=== PATIENT | female | born 1955 | race Caucasian/White ===

== ENCOUNTER 2023-01-02 07:49 | Outpatient (OUT) | payer MEDICARE, SELFPAY ==
--- NOTE | 2023-01-02 07:05 | NM_ITS ---
[address] [address] Patient Name: DREAD PATEL MRN: [id number] date: 1955 Sex: F Assigned Patient Location: [place] Current Patient Location: Accession/Order Number: [id number] Exam Date: 01/02/2023 07:05 Report Date: 01/03/2023 09:16 At the request of: NATHANIEL MADERA Procedure: NM thyroid w uptake EXAMINATION: NM thyroid w uptake HISTORY: ABNORMAL RESULTS OF THYROID FUNCTION STUDIES R94.6 COMPARISON: No relevant comparison available. TECHNIQUE: After obtaining patient consent, 199.1 uCi I-123 was administered orally. Uptake was evaluated between 4 and 6 hours and at 24 hours. Images were acquired at 4 - 6 hours. FINDINGS: THYROID SCAN: Normal-appearing thyroid gland without enlargement or filling defect. Uptake at 7 hours: 7.9% (normal range 6-14%) Uptake at 24 hours: Patient did not return for evaluation. Patient was contacted but declined to return for evaluation. NM/NM thyroid w uptake IMPRESSION: 1. Limited evaluation since patient did not return for 24-hour evaluation. 2. Low normal uptake at 7 hours. 3. Normal appearance of thyroid gland. Electronically authenticated by: STACIE KWON Date: 01/03/2023 09:16
== END 2023-01-02 07:50 | disposition home or self-care (01) ==
LOC: NM 07:49
PROVIDERS: PCP Family Medicine; Visit Provider Family Medicine
DX: R94.6 Abnormal results of thyroid function studies (principal)
CPT/HCPCS: 78014; A9516

== ENCOUNTER 2023-07-03 15:30 | Outpatient (OUT) | payer MEDICARE, SELFPAY ==
--- NOTE | 2023-07-03 15:36 | XR_ITS ---
The [address] [address] Patient Name: DREAD PATEL MRN: [id number] date: 1955 Sex: F Assigned Patient Location: [facility] Current Patient Location: Accession/Order Number: [id number] Exam Date: 07/03/2023 15:43 Report Date: 07/04/2023 08:02 At the request of: NATHANIEL MADERA Procedure: XR sacrum coccyx min 2V EXAMINATION: XR sacrum coccyx min 2V HISTORY: sacral contusion S30.0XXA ; sacrum and coccyx pain since falling 2 weeks ago COMPARISON: No relevant comparison available. FINDINGS: BONES: 6 mm anterolisthesis of L3 on 4. 10 mm anterolisthesis of L4 on 5. Moderate degenerative facet arthropathy L3-4 through L5-S1. Questionable cortical step-off involving right lateral margin of the sacrum at level of mid sacroiliac joint. DISC SPACES: Marked narrowing L5-S1. Moderate narrowing L3-4 and L4-5. PARASPINOUS: Negative. No paraspinous abnormality is seen. OTHER: Negative. XR/XR sacrum coccyx min 2V IMPRESSION: 1. Question of fracture involving the right side of sacrum S2-3 level. While this may represent summation artifact CT imaging of the pelvis should be considered for further evaluation. 2. Multilevel marked degenerative changes of lumbar spine which could contribute to patient's symptoms. Electronically authenticated by: STACIE KWON Date: 07/04/2023 08:02
== END 2023-07-03 15:31 | disposition home or self-care (01) ==
LOC: RAD 15:32
PROVIDERS: PCP Family Medicine; Visit Provider Family Medicine
DX: S30.0XXA Contusion of lower back and pelvis, initial encounter (principal); M51.36 Other intervertebral disc degeneration, lumbar region
CPT/HCPCS: 72220

== ENCOUNTER 2024-11-25 12:16 | Outpatient (OUT) | payer MEDICARE, SELFPAY | END 2024-11-25 12:17 | disposition home or self-care (01) | LOC: WC 12:17 | PROVIDERS: PCP Family Medicine; Visit Provider Physician Assistant | DX: I87.312 Chronic venous hypertension (idiopathic) with ulcer of left lower extremity (principal); L97.822 Non-pressure chronic ulcer of other part of left lower leg with fat layer exposed | CPT/HCPCS: G0463 ==

== ENCOUNTER 2024-12-16 15:00 | Outpatient (OUT) | payer MEDICARE, SELFPAY | END 2024-12-16 15:01 | disposition home or self-care (01) | LOC: WC 12-17 08:23 | PROVIDERS: PCP Family Medicine; Visit Provider Physician Assistant | DX: I87.312 Chronic venous hypertension (idiopathic) with ulcer of left lower extremity (principal); L97.822 Non-pressure chronic ulcer of other part of left lower leg with fat layer exposed | CPT/HCPCS: G0463 ==

== ENCOUNTER 2025-01-06 13:39 | Outpatient (OUT) | payer MEDICARE, SELFPAY ==
--- OUTSIDE RECORDS SUMMARY | 2012-01-16 19:30 | XMS_ITS | Encounter Summary ---
Author Organization [facility] Address [address], [address] [place] [address] Care Team Providers Care Scraper Burrer Name Role Phone Kamaljit Lopez MD Primary Care Provider [phone] Encounter Details Date Type Department Care Team ([facility] st Contact Info) Description 01/16/2012 7:30 PM EDT Hospital Encounter MTH PET [address] [place], [place] [id number] Kamaljit Lopez MD [address] [place] [address] Social History Tobacco Use Types Packs/Day Years Used Date Smoking Tobacco: Never Smokeless Tobacco: Never Alcohol Use Standard Drinks/Week Comments Not Currently 0 (1 standard drink = 0.6 oz pur e alcohol) Interpersonal Safety Domain Source: IP Abuse Scr eening Answer Date Recorded Physical abuse Denies 11/02/2024 Verbal abuse Denies 11/02/2024 Emotional abuse Denies 11/02/2024 Financial abuse Denies 11/02/2024 Sexual abuse Denies 11/02/2024 Comments No Sex and Gender Information Value Date Recorded Sex Assigned at Not on file Legal Sex Female 8:45 PM EST Gender Identity Not on file Sexual Orientation Not on file COVID-19 Exposure Response Date Recorded In the last 10 days, have yo u been in contact with someone who was confirmed or suspected to have Coronavirus/COVID-19? Yes 09/08/2021 9:12 AM EDT documented as of this encounter Plan of Treatment Not on file documented as of this encounter Visit Diagnoses Not on filedocumented in this encounter Additional Health Concerns Infection Onset Date Last Indicated Resolved Time ESBL (Extended Spectrum Beta Lactamase) 12/28/2018 01/29/2019 COVID-19 (Rule Out) 09/06/2019 09/06/2019 09/07/19 20 12:02 PM EDT COVID-19 (Rule Out) 11/05/2019 11/05/2019 11/08/19 20 6:07 PM EDT COVID-19 (Rule Out) 09/08/2021 09/08/2021 09/09/19 22 10:07 AM EDT COVID-19 09/08/2021 09/08/2021 09/22/2021 9:27 PM EDT COVID-19 (Rule Out) 04/04/2022 04/04/2022 04/05/20 22 10:34 AM EST Influenza 04/04/2022 04/04/2022 04/14/2022 9:26 PM EST documented as of this encounter Care Teams Scraper Burrer Relationship Specialty Start Date End Date Kamaljit Lopez MD [address] [place] [address] PCP - General 01/15/12 documented as of this encounter
--- OUTSIDE RECORDS SUMMARY | 2016-03-26 14:00 | XMS_ITS | Encounter Summary ---
Author Organization [facility] Address [facility] [facility], [address] [place] [address] Care Team Providers Care Kindergartners Helper Name Role Phone Kamaljit Lopez MD Primary Care Provider [phone] Encounter Details Date Type Department Care Team ([facility] st Contact Info) Description 03/26/2016 1:00 PM EST Hospital Encounter MTH PRE ADMIT [address] [place] [address] Bertin Gomez MD [address] [place] [address] Social History Tobacco Use Types Packs/Day Years [...] documented as of this encounter Care Teams Kindergartners Helper Relationship Specialty Start Date End Date Kamaljit Lopez MD [address] [place] [address] PCP - General 01/15/12 documented as of this encounter
--- OUTSIDE RECORDS SUMMARY | 2024-10-20 10:30 | XMS_ITS ---
Author Organization The [facility] in [place] Address [address] [place] [address] Care Team Providers Care Dough Mixer Helper Name Role Phone Dereje Lopez Primary Care Provider REASON FOR VISIT not walking straight since knee surgery Encounters Encounter Location Date Provider Diagnosis [facility] [address] [place] [address] 10/20/2024 Dereje Lopez Plan Of Treatment No Information Progress Notes * Michelle ROSEN LDOB: 6 (69 yo F)Acc No.[id number]:10/20/2024 UNLOCKED PROGRESS NOTE Progress Note Patient: Jama DENSON Michelle Natanael Provider: Poornima Lopez MD (TTC) :1955 A ge:69 Y S ex:Female Date:10/20/2024 Address:[address], [address], [place], [place] Subjective: * Chief Complaints: * 1 . Not walking straight since knee surgery. * Medical History: Objective: * Vitals: Assessment: Plan: * Treatment: * * Electronic signature of Dereje Lopez MD, [id number] on 01/06/2025 at 01:42 PM EDT Sign off status: Pending Visit Status: C ANCPHONE (Cancelled Phone) * Provider: Poornima Lopez MD (TTC) Date: 0 10/20/2024 Generated for Thao ochoa/Sheng/Deborah on: 1 01:42 PM EDT
--- OUTSIDE RECORDS SUMMARY | 2024-11-30 07:30 | XMS_ITS ---
Author Organization The [facility] in [place] Address [address] [place] [address] Care Team Providers Care Apparel Rental Clerk Name Role Phone Dereje Lopez Primary Care Provider [phone] REASON FOR VISIT possible neuropathy Encounters Encounter Location Date Provider Diagnosis [facility] [address] [place] [address] 11/30/2024 Dereje Lopez Plan Of Treatment No Information Progress Notes * Michelle ROSEN LDOB: 6 (69 yo F)Acc No.[id number]:11/30/2024 UNLOCKED PROGRESS NOTE Progress Note Patient: Michelle VALENZUELA Provider: Poornima Lopez MD (TTC) :1955 A ge:69 Y S ex:Female Date:11/30/2024 Address:[address] [place] [address], [address], [place], [place] Subjective: * Chief Complaints: * 1 . Possible neuropathy. * Medical History: Objective: * Vitals: Assessment: Plan: * Treatment: * * Electronic signature of Dereje Lopez MD, [id number] on 01/06/2025 at 01:41 PM EDT Sign off status: Pending Visit Status: C ANCPHONE (Cancelled Phone) * Provider: Poornima Lopez MD (TTC) Date: 0 11/30/2024 Generated for Printi ng/Faxing/eTransmitting on: 1 01:41 PM EDT
--- OUTSIDE RECORDS SUMMARY | 2025-01-06 13:41 | XMS_ITS | Clinical Summary ---
Author Organization The [facility] Address [address] [place] [address] Care Team Providers Care Football Pad Repairer Name Role Phone Unavailable Primary Care Provider Unavailabl e Social History Tobacco Use Types Packs/Day Years Used Date Smoking Tobacco: Never Assessed [place] Safety & Environment Answer Date Rec orded Fear of Current or Ex-Partner Not on file Emotionally Abused Not on file 05/29/2023 Physically Abused Not on file 05/29/2023 Sexually Abused Not on file 05/29/2023 Physically or Sexually Abused Not on file Comments Unknown Sex and Gender Information Value Date Recorded Sex Assigned at Not on file Legal Sex Female 10:12 PM EDT Gender Identity Not on file Sexual Orientation Not on file Plan of Treatment Health Maintenance Due Date Last Done Comments CT Colonography 1955 Colonoscopy 1955 Colorectal Cancer Screening 1955 FIT-DNA 1955 FIT 1955 FOBT 1955 Sigmoidoscopy 1955 Depression Screening 1968 Adult Tetanus 02/23/1978 Mammogram 1996 Pneumococcal Vaccine: 50+ Ye ars (1 of 1 - PCV) 02/23/2006 Zoster Vaccines (1 of 2) 02/23/2006 Fall Risk Screening 02/23/2021 COVID-19 Vaccine ( - 2023-2 5 season) 2024 Influenza Vaccine (#1) 2024 01/05/2019 HIB Vaccines Aged Out No longer eligi ble based on patient's age to complete this topic HPV Vaccines Aged Out No longer eligi ble based on patient's age to complete this topic IPV Vaccines Aged Out No longer eligi ble based on patient's age to complete this topic Meningococcal B Vaccine Aged Out No l onger eligible based on patient's age to complete this topic Meningococcal Vaccine Aged Out No jonathon claudio eligible based on patient's age to complete this topic Rotavirus Vaccines Aged Out No longer eligible based on patient's age to complete this topic
--- OUTSIDE RECORDS SUMMARY | 2025-01-06 13:41 | XMS_ITS | Clinical Summary ---
Author Organization [employer] Address [id number] [address] [place] [address] Care Team Providers Care E Business Consultant Name Role Phone Kamaljit Lopez MD Primary Care Provider [phone] Allergies Active Allergy Reactions Criticality Noted Date Comments Penicillins 11/20/2017 Full body rash Medications ALPRAZolam (XANAX) 0.25 mg tablet Take 0.25 mg by mouth 3 (three) times a day as needed for anxiety or sleep. Active atorvastatin (LIPITOR) 10 mg tablet Take 10 mg by mouth daily. Active carvedilol (COREG) 25 mg tablet Take 25 mg by mouth 2 (two) times a day with meals. Active cloNIDine (CATAPRES) 0.1 mg tablet Take 0.1 mg by mouth 3 (three) times a day. Active losartan (COZAAR) 25 mg tablet Take 100 mg by mouth daily. Active sulindac (CLINORIL) 150 mg tablet Take 150 mg by mouth 2 (two) times a day. Active tiZANidine (ZANAFLEX) 4 mg tablet Take 8 mg by mouth once daily at bedtime. Active traMADol (ULTRAM) 50 mg tablet Take 50 mg by mouth every 6 (six) hours as needed for pain. Active Active Problems Problem Noted Date Diagnosed Date Chronic bilateral low back pain without sciatica 11/25/2017 Pancreatitis 11/20/2017 Essential hypertension 11/20/2017 Anxiety 11/20/2017 Hypercholesterolemia 11/20/2017 Acute pancreatitis 11/20/2017 Acute calculous cholecystitis 11/20/2017 Immunizations No known immunizations Social History Tobacco Use Types Packs/Day Years Used Date Smoking Tobacco: Never Smokeless Tobacco: Never Alcohol Use Standard Drinks/Week Comments No 0 (1 standard drink = 0.6 oz pur e alcohol) Childcare Answer Date Recorded Childcare Unknown 09/17/2018 Employment Answer Date Recorded Employment Unknown 09/17/2018 Purpose - Life Answer Date Recorded Purpose and direction in life Unknown Comments Unknown Sex and Gender Information Value Date Recorded Sex Assigned at Not on file Legal Sex Female 1:40 PM EDT Gender Identity Not on file Sexual Orientation Not on file Last Filed Vital Signs Vital Sign Reading Time Taken Comments Blood Pressure 110/74 12/04/2017 10:37 AM EDT Pulse 75 11/25/2017 11:55 AM EDT Temperature 36.9 C (98.4 F) 11/25/2017 11:55 AM EDT Respiratory Rate 16 11/25/2017 11:55 AM EDT Oxygen Saturation 98% 11/25/2017 11:55 AM EDT Inhaled Oxygen Concentration - - Weight 84.8 kg (187 lb) 12/04/2017 10:37 AM EDT Height 165.1 cm (5' 5 ) 11/20/2017 1:26 PM EDT Body Mass Index 31.12 11/20/2017 1:26 PM EDT Plan of Treatment Health Maintenance Due Date Last Done Comments Depression Screening 1968 Tobacco Screening 1968 Adult BMI Screening 02/23/1974 DTaP,Tdap and Td Vaccines (1 - Tdap) 02/23/1975 Zoster (Shingles) Vaccine (1 of 2) 02/23/2006 Fall Risk Screening 02/23/2021 Influenza Vaccine 12/06/2024 Goals Goal Patient Goal Type Associated Problems Recent Progress Patient-Stated? Author <enter goal here> General Yes Mary Ann Wilde, RN Note: Evaluation of progress towards goal: Home self care with her sisters support Medical Devices Not on file Insurance MEDICARE Advance Directives * Full Code (Latest Code Status on File) Date Activated Date Inactivated Comments 11/20/2017 12:43 AM 11/25/2017 4:23 PM Care Teams E Business Consultant Relationship Specialty Start Date End Date Kamaljit Lopez MD PCP - General 08/25/17
--- OUTSIDE RECORDS SUMMARY | 2025-01-06 13:42 | XMS_ITS | Patient Health Record ---
Author Organization [facility] Address [address] [place] [address] Care Team Providers Care Room Maid Name Role Phone Kamaljit Lopez Primary Care Provider Bertin Cheek Unavailable [phone] Allergies Allergen (clinical drug ingredient) Drug/Non Drug Allergy documented on EMR Reaction Allergy Type Onset Date Status sulfamethoxazole / trimethoprim Bactrim Unknown Drug Allergy Active Reason For Referral No Information Medications Medication SIG (Take, Route, Frequency, Duration) Notes Start Date End Date Status TraMADol Hydrochloride 50 mg take 1 tablet by oral route every 12 hours as needed ORAL TRAMADOL HCL Active Atorvastatin Calcium 10 mg take 1 tablet by oral route every day ORAL ATORVASTATIN CALCIUM Active Losartan Potassium 100 mg take 1 tablet by oral route every day ORAL LOSARTAN POTASSIUM Not-Taking ZyrTEC ORAL ZYRTEC Not-Taking Diclofenac Sodium sodium 75 mg take 1 tablet by oral route 2 times every day ORAL DICLOFENAC SODIUM Active carvedilol 25 mg take 1 tablet by oral route 2 times every day with food ORAL CARVEDILOL Active CloNIDine Hydrochloride 0.1 mg take 1 tablet by oral route 2 times every day ORAL CLONIDINE HCL Not-Taking Acetaminophen-Hydroc odone Bitartrate 325 mg-5 mg 1-2 tab(s) PRN PAIN ORAL every 6 hours for 7 days HYDROCODONE-ACETAM INOPHEN 02/12/2023 Active Linzess 145 mcg take 1 capsule by oral route every day on an empty stomach at least 30 minutes before 1st meal of the day ORAL LINZESS Not-Taking Social History Tobacco Use: Social History Observation Description Date Details (start date - stop date) Never Smoker NA - NA Smoking History Question Answer Notes Smoking Status NonSmoker Problems Problem Type SNOMED Code ICD Code Onset Dates Problem Status W/U Status Risk Notes Problem [id number] Aftercare following joint replacement surgery (Z47.1) Active confirmed Problem 377402855500122 Primary osteoarthritis of left knee (M17.12) Active confirmed Problem [id number] Presence of left artificial knee joint (Z96.652) Active confirmed Plan Of Treatment Pending Test Test Name Order Date [facility] PREOP- CBC WITH DIFF, BM P, TYPE AND SCREEN, MRSA BY PCR BILATERAL NARES, [facility]:PT / OT EVALUATION , EKG 11/14/2022 [facility] Knee, Left 4v -[id number] 11/14/2022 Insurance Providers Payer Name Payer Address Payer Phone Subscriber Number Group Number Insured Name Patient Relationship to Insured Coverage Start Date Coverage End Date Medicare [employer] [address] [place] [phone] [id number] DREAD PATEL Self - patient is the insured Medical (General) History Medical History History ICD Code Respiratory problems: Yes High Blood Pressure: Yes Anxiety: Yes Drug Allergies: Yes Surgical History Surgery Date(Month/Year) Left total knee arthroplasty 01/2023 Cholecystectomy 2018 Rt knee replacement 2007 Lung 2004 Hospitalization History Reason Date(Month/Year) Diverticulosis
--- OUTSIDE RECORDS SUMMARY | 2025-01-06 13:42 | XMS_ITS | Patient Health Record ---
Author Organization [facility] [place] Address [address] [place] [address] Care Team Providers Care Encapsulator Name Role Phone Dereje Lopez Primary Care Provider Allergies Allergen (clinical drug ingredient) Drug/Non Drug Allergy documented on EMR Reaction Allergy Type Onset Date Status sulfamethoxazole / trimethoprim Bactrim rash Drug Allergy Active cephalexin Cephalexin diarrhea Drug Allergy Activ e Results Component Value Reference Range Notes CRISSY LUDY DIGITAL SCREEN SELF REFERRAL W OR WO CAD BILATERAL Reviewed date:01/08/2024 07:03:00 PM Interpretation: Performing Lab: Notes/Report: EXAMINATION: Performed at: [address] [place] [address] Reason For Referral Diagnosis 1 Leg wound, left (S81 .802A) Referral Organization [facility] Referring Provider First Name Dereje Referring Provider Last Name sean Referring Provider [facility] Referred Provider Specialty Wound Care Referral Priority Routine Diagnosis 1 Laceration of leg (S 81.020H) Referral Organization [facility] Referring Provider First Name Dereje Referring Provider Last Name [facility] Referring Provider [facility] Referred Provider Specialty Wound Care Referral Priority Routine Medications Medication SIG (Take, Route, Frequency, Duration) Notes Start Date End Date Status Doxycycline Monohydrate 100 MG 1 tablet Orally bid; Duration: 10 days 11/11/2024 Active Irbesartan 300 MG Take 1 tablet by ivone th once daily; Duration: 90 Active tiZANidine HCl 4 MG TAKE 2 TABLETS BY MO UTH EVERY DAY AT BEDTIME; Duration: 30 Active Rollator - Use rollator to safe ly ambulate daily; Duration: 365 days 01/23/2023 Active Atorvastatin Calcium 10 MG Take 1 tablet by mouth once daily; Duration: 90 Active Mupirocin 2 % 1 application Can Filler ally Twice a day; Duration: 5 07/03/2023 Active HYDROcodone-Acetaminophen 5-325 MG 1/2 - 1 tablet as needed Orally QHS; Duration: 30 days 12/24/2024 Active amLODIPine Besylate 10 MG TAKE 1 TABLET BY MOUTH EVERY DAY FOR 30 DAYS; Duration: 90 Active Meloxicam 15 MG 1 tablet Orally Once a day; Duration: 30 days 06/22/2024 Active hydrALAZINE HCl 50 MG TAKE 2 TABLETS BY MOUTH 4 TIMES DAILY; Duration: 30 Active traMADol HCl 50 MG TAKE 2 TABLETS BY MO [facility] 3 TIMES A DAY NEEDED; Duration: 30 12/16/2024 Active Cymbalta 30 MG 1 capsule Orally Onc e a day; Duration: 30 day(s) 01/02/2024 Active Clindamycin Phosphate 1 % 1 application Externally Once a day 09/01/2024 Active Claritin 10 MG 1 tablet Orally Once a day Active Carvedilol 25 MG TAKE 1 TABLET BY IVONE THREE TIMES DAILY; Duration: 90 days Active Buprenorphine 20 MCG/HR APPLY ONE PATCH TO SKIN ONCE A WEEK.; Duration: 28 12/24/2024 Active Ciprofloxacin HCl 500 MG 1 tablet Orally every 12 hrs; Duration: 10 days 11/11/2024 Active Immunizations Vaccine Route Administration Date Status Comme nts Tdap (Adacel) IM Intramuscular 09/01/2024 Administered Social History Tobacco Use: Social History Observation Description Date Details (start date - stop date) Never Smoker NA - NA Tobacco Use/Smoking Question Answer Notes Patient is a nonsmoker Alcohol Screen (Audit-C) Question Answer Notes Did you have a drink containing alcohol in the p ast year? No Points 0 Interpretation Negative AUDIT-C (Standard) Question Answer Notes Did you have a drink containing alcohol in the p ast year? 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) Active confirmed Problem Backache (855842072) Other dorsa lgia (M54.89) Active confirmed Problem Abnormal glucose lev el (596044582) Other abnormal glucose (R73.09) Active confirmed Problem Thyroid function chuck ts abnormal (106184028) Abnormal results of thyroid function studies (R94.6) Active confirmed Problem Strain of muscle of left upper arm (99742196712541346) Strain of other muscles, fascia and tendons at shoulder and upper arm level, left arm, initial encounter (S46.812A) Active confirmed Problem Hypertension (14478162) Hypertension (I10) Active confirmed Problem Osteoarthritis of kn ee (007569421) Knee osteoarthritis (M17.9) Active confirmed Problem Neuropathy (623314179) Neuropathy (G62.9) Active confirmed Problem Cellulitis (493529302) Cellulitis (L03.90) Activ e confirmed Problem Acute sinusitis (25172417) Acute sinus infection (J01.90) Active confirmed Problem Sacral contusion (S30.0XXA) Active confirmed Problem hypercholesterolemia (disorder) (48404681) Hypercholesteremia (E78.00) Active confirmed Problem Low back pain (finding) (896546694) Low back pain at multiple sites (M54.50) Active confirmed Vital Signs Temperature 98.6 degrees Fahrenheit 03/18/2024 Blood pressure diastolic 94 mm Hg 11/11/2024 Height 61.5 in 11/11/2024 Blood pressure systolic 158 mm Hg 11/11/2024 Weight 174.6 lbs 11/11/2024 BMI 32.45 kg/m2 11/11/2024 Procedures Procedure Date Ordered Date Performed Result Body Sit e Dressing Change- performed 03/18/2024 N/A Encounters Encounter Location Date Provider Diagnosis [facility] [address] [place] [address] 06/29/2024 Dereje Hoy Acute non-recurrent sinusitis, unspecified location J01.90 and Nasal congestion R09.81 [facility] [address] [place] [facility] [place] [address] 09/01/2024 Dereje Hoy Cellulitis L03.90 an d Laceration of leg S81.819A [facility] [address] [place] [facility] [address] 11/11/2024 Dereje Hoy Morbid (severe) obes ity due to excess calories E66.01 and Non-pressure chronic ulcer of other part of left lower leg with fat layer exposed L97.822 [facility] [address] [facility] [place] [address] 03/18/2024 Dereje Hoy Cellulitis L03.90 [facility] [address] [place] [facility] [address] 01/08/2024 Dereje y [facility] [address] [place] [facility] [address] 01/14/2024 Dereje Hoy [facility] [address] [facility] [address] 02/06/2024 Dereje Hoy [facility] [address] [place] [address] 02/16/2024 Dereje Hoy [facility] [address] [place] [facility] [address] 03/08/2024 Dereje Hoy Hypertension I10 [facility] [address] [place] [facility] [address] 03/12/2024 Dereje Hoy [facility] [address] [place] [facility] [address] 03/17/2024 Dereje Hoy [facility] [address] [place] [facility] [place] [address] 03/18/2024 Dereje Hoy Leg wound, left S81. 802A [facility] [address] [place] [address] 03/19/2024 Dereje Hoy [facility] [address] [place] [facility] [address] 04/06/2024 Dereje Hoy [facility] [address] [place] [address] 05/10/2024 Dereje Hoy Hypertension I10 [facility] [address] [place] [address] 05/14/2024 Dereje Hoy [facility] [address] [place] [address] 06/08/2024 Dereje Hoy [facility] [address] [place] [address] 06/09/2024 Dereje Hoy Hypertension I10 [facility] [address] [facility] [place] [address] 06/22/2024 Dreeje Hoy [facility] [address] [place] [address] 06/29/2024 Dereje Hoy Acute non-recurrent sinusitis, unspecified location J01.90 [facility] [address] [facility] [place] [address] 07/15/2024 Dereje Hoy Nasal congestion R09 .81 [facility] [address] [facility] [place] [address] 08/03/2024 Dereje Hoy Acute non-recurrent sinusitis, unspecified location J01.90 [facility] [address] [place] [address] 08/05/2024 Dereje Hoy Acute non-recurrent sinusitis, unspecified location J01.90 [facility] [address] [facility] [place] [address] 08/11/2024 Dereje Hoy Hypertension I10 [facility] [address] [facility] [place] [address] 09/03/2024 Dereje Hoy Cellulitis L03.90 [facility] [address] [facility] [place] [address] 09/27/2024 Dereje Hoy Cellulitis L03.90 [facility] [address] [facility] [place] [address] 09/30/2024 Dereje Hoy Cellulitis L03.90 [facility] [address] [place] [facility] [place] [address] 10/04/2024 Dereje Hoy [facility] [address] [place] [facility] [address] 10/14/2024 Dereje Hoy Hypertension I10 [facility] [address] [place] [facility] [place] [address] 10/25/2024 Dereje Hoy Cellulitis L03.90 [facility] [address] [place] [address] 11/11/2024 Dereje Hoy Hypertension I10 [facility] [address] [place] [facility] [place] [address] 11/11/2024 Dereje Hoy Laceration of leg S81.819A [facility] [address] [place] [address] 11/22/2024 Dereje Hoy Cellulitis L03.90 [facility] [address] [place] [address] 11/26/2024 Dereje Hoy Cellulitis L03.90 [facility] [address] [place] [address] 11/29/2024 Dereje Hoy [facility] [address] [place] [address] 12/16/2024 Dereje Hoy Hypertension I10 [facility] [address] [place] [facility] [place] [address] 12/24/2024 Dereje Hoy Cellulitis L03.90 Assessments Encounter Date Diagnosis (ICD Code) Assessment Notes Treatment Notes Treatment Clinical Notes Section Notes 03/08/2024 Hypertension (ICD-10 - I10) 03/18/2024 Leg wound, left (ICD-10 - S81.802A) 05/10/2024 Hypertension (ICD-10 - I10) 06/09/2024 Hypertension (ICD-10 - I10) 06/29/2024 Acute non-recurrent sinusitis, unspecified location (ICD-10 - J01.90) 07/15/2024 Nasal congestion (ICD-10 - R09.81) 08/03/2024 Acute non-recurrent sinusitis, unspecified location (ICD-10 - J01.90) 08/05/2024 Acute non-recurrent sinusitis, unspecified location (ICD-10 - J01.90) 08/11/2024 Hypertension (ICD-10 - I10) 09/03/2024 Cellulitis (ICD-10 - L03.90) 09/27/2024 Cellulitis (ICD-10 - L03.90) 09/30/2024 Cellulitis (ICD-10 - L03.90) 10/14/2024 Hypertension (ICD-10 - I10) 10/25/2024 Cellulitis (ICD-10 - L03.90) 11/11/2024 Hypertension (ICD-10 - I10) 11/11/2024 Laceration of leg (ICD-10 - S81.819A) 11/22/2024 Cellulitis (ICD-10 - L03.90) 11/26/2024 Cellulitis (ICD-10 - L03.90) 12/16/2024 Hypertension (ICD-10 - I10) 12/24/2024 Cellulitis (ICD-10 - L03.90) 09/01/2024 Cellulitis (ICD-10 - L03.90) 09/01/2024 Laceration of leg (ICD-10 - S81.819A) 11/11/2024 Morbid (severe) obesity due to excess calories (ICD-10 - E66.01) disucsse diet and exercis - pt understands plan 11/11/2024 Non-pressure chronic ulcer of other part of left lower leg with fat layer exposed (ICD-10 - L97.822) 03/18/2024 Cellulitis (ICD-10 - L03.90) 06/29/2024 Acute non-recurrent sinusitis, unspecified location (ICD-10 - J01.90) Rest and drink more liquids, especially water. You may use a humidifier or vaporizer to help keep the drainage moist. Tzil-rlk-zuaomyc Nasal Saline may help the stuffy and runny nose. Use Ibuprofen and or Tylenol as needed for fever, chills, body aches or pain. Children 5 years old should not be given mcjo-rjk-umqkwbc cough and cold medications such as guaifenesin and dextromethorphan. If you're over age 5, you may try pboa-ems-zndwdbp cold medications such as guaifenesin and dextromethorphan, or multi-symptom cold reliever such as Dayquil to help reduce the symptoms. Antibiotics have been prescribed. You should take these until completed and follow the directions. Antibiotics can sometimes cause upset stomach, and in rare cases, serious allergic reactions or serious gastrointestinal problems. If you start having severe abdominal pain, severe vomiting, or bloody diarrhea, you should be reevaluated by your physician or urgent care immediately. Follow up with your Primary Care Provider or return to clinic if symptoms do not improve within 3-5 days 06/29/2024 Nasal congestion (ICD-10 - R09.81) Plan Of Treatment Pending Test Test Name Order Date CMP (COMPLETE METABOLIC PANEL) 3 CMP (COMPLETE METABOLIC PANEL) 4 HEMOGLOBIN A1C (GLYCO) 10/23/2022 HEMOGLOBIN A1C (GLYCO) 01/02/2024 IRON, TOTAL 01/02/2024 IRON, TOTAL 10/23/2022 LIPID PANEL (CHOL/TRIG/HDL/LDL) 10/24/19 23 LIPID PANEL (CHOL/TRIG/HDL/LDL) 01/02/20 24 CBC WITH DIFF 01/02/2024 CBC WITH DIFF 10/23/2022 VITAMIN D, 25 LEVEL (TOTAL) 10/23/2022 VITAMIN D, 25 LEVEL (TOTAL) 01/02/2024 MAMM Mammograms CAD 10/23/2022 MRI Shoulder LT w/o contrast 01/20/2023 NUC MED Thyroid Uptake and Scan* 023 T3 FREE, T4 FREE and TSH 11/15/2022 Dressing Change- performed 03/18/2024 Insulin Level 10/23/2022 Insulin Level 01/02/2024 STOOL OCCULT BLOOD 01/02/2024 STOOL OCCULT BLOOD 10/23/2022 CT Pelvis w/o Contrast 07/06/2023 GLYCOHEMOGLOBIN A1C 11/14/2022 GLYCOHEMOGLOBIN A1C 11/14/2022 IRON 11/14/2022 IRON 11/14/2022 THYROID ANTIBODIES 11/15/2022 THYROID PEROXIDASE AB 12/04/2022 THYROID PEROXIDASE AB 12/04/2022 VITAMIN D 25 OH 11/14/2022 VITAMIN D 25 OH 11/14/2022 XR SHOULDER LT 2V or > 01/15/2023 THYROID PANEL (T4/TSH/FREE T3) 3 THYROID PANEL (T4/TSH/FREE T3) 4 Insurance Providers Payer Name Payer Address Payer Phone Subscriber Number Group Number Insured Name Patient Relationship to Insured Coverage Start Date Coverage End Date [employer] MED[employer]ARE [address] ELENI NIX [id number] Michelle Rosen Self - patient is the insured 2 Medications Administered Medication Instructions Date of Administration Dosage Notes Kenalog-40 07/03/2023 80 mg 80 mg Ketorolac Tromethamine 01/10/2023 60 mg 60 Ketorolac Tromethamine 06/29/2024 60 mg Triamcinolone 40 mg/ml 06/29/2024 120 mg Medical (General) History Medical History History ICD Code Low vitamin D level E55.9 COVID U07.1 Arthritis M19.90 Bowel perforation K63.1 Diverticulitis of large intestine with a bscess with bleeding K57.21 Degeneration of cervical intervertebral disc M50.30 Osteoporosis M81.0 HTN (hypertension), malignant I10 Bronchial adenoma D38.1 Surgical History Surgery Date(Month/Year) Left eye lens implant [address] Gomez 023 lung removed gallbladder bowel resection 2018 right knee replacement Hospitalization History Reason Date(Month/Year) diverticulitis 2018
--- OUTSIDE RECORDS SUMMARY | 2025-01-06 13:42 | XMS_ITS | Clinical Summary ---
Author Organization [facility] Healthcare Address [address] [place] [address] Care Team Providers Care Extrusion Press Adjuster Name Role Phone Unavailable Primary Care Provider Unavailabl e Social History Tobacco Use Types Packs/Day Years Used Date Smoking Tobacco: Never Assessed Comments Unknown Sex and Gender Information Value Date Recorded Sex Assigned at Not on file Legal Sex Female 8:21 PM EDT Gender Identity Not on file Sexual Orientation Not on file Last Filed Vital Signs Vital Sign Reading Time Taken Comments Blood Pressure 139/96 03/23/2018 12:00 PM EST Pulse - - Temperature - - Respiratory Rate - - Oxygen Saturation - - Inhaled Oxygen Concentration - - Weight 87.5 kg (193 lb) 04/28/2018 12:00 PM EST Height 157.5 cm (5' 2 ) 04/28/2018 12:00 PM EST Body Mass Index 35.3 04/28/2018 12:00 PM EST Plan of Treatment Not on file
--- OUTSIDE RECORDS SUMMARY | 2025-01-06 13:42 | XMS_ITS | Encounter Summary ---
Author Organization [facility] Address [address], [address] [place] [address] Care Team Providers Care Service Planner Name Role Phone Kamaljit Lopez MD Primary Care Provider [phone] Reason for Referral * Imaging (Routine) - Denied Specialty Diagnoses / Procedures Referred By Contac t Referred To Contact Radiology Diagnoses Left shoulder pain, unspecified chronicity Procedures MRI SHOULDER LEFT WO CONTRAST Kamaljit Lopez MD [address] [place] [address] Phone: tel: fax: Referral ID Status Reason Start Date Expiration Date Visits Re quested Visits Authorized [id number] Denied 01/24/2023 01/24/2024 1 0 Encounter Details Date Type Department Care Team (Latest Contact Info) Description 01/24/2023 Transcribe Orders [facility] [address] [place] [address] Kamaljit Lopez MD [address] [place] [address] Left shoulder pain, unspecified chronicity (Primary Dx) Social History Tobacco Use Types Packs/Day Years Used Date Smoking Tobacco: Never Smokeless Tobacco: Never Alcohol Use Standard Drinks/Week Comments Not Currently 0 (1 standard drink = 0.6 oz pur e alcohol) Comments No Sex and Gender Information Value Date Recorded Sex Assigned at Not on file Legal Sex Female 8:45 PM EST Gender Identity Not on file Sexual Orientation Not on file documented as of this encounter Plan of Treatment Not on file documented as of this encounter Results * MRI SHOULDER LEFT WO CONTRAST (01/30/2023 10:30 AM EDT) Anatomical Region Laterality Modality Shoulder, Chest, Arm Magnetic Re sonance 01/30/2023 10:5 9 AM EDT Impressions 01/30/2023 12:41 PM EDT 1. Multifocal, partial-thickness interstitial and articular-surface tearing of supraspinatus and infraspinatus with greater than 50% partial-thickness articular-surface and interstitial tearing of mid and posterior supraspinatus between musculotendinous junction and critical zone. 2. Mild subscapularis tendinosis. 3. Moderate bicipital groove tenosynovitis. Thinning of the intra-articular long head of biceps tendon. 4. Degeneration and volume loss of the majority of the labrum. 5. Moderate glenohumeral chondromalacia. Small debris containing glenohumeral joint effusion. 6. Mild degenerative change of the left AC joint. 7. Nonspecific marrow edema in the humeral head and proximal humeral diaphysis. Narrative 01/30/2023 12:41 PM EDT EXAMINATION: MRI OF THE LEFT SHOULDER WITHOUT CONTRAST 01/30/2023 10:25 am TECHNIQUE: Multiplanar multisequence MRI of the left shoulder was performed without the administration of intravenous contrast. COMPARISON: Left shoulder plain radiographs from 01/17/2023. HISTORY: ORDERING SYSTEM PROVIDED HISTORY: Left shoulder pain, unspecified chronicity 67-year-old female with left shoulder pain. FINDINGS: ROTATOR CUFF: Trace fluid in the subacromial/subdeltoid bursa. Multifocal partial-thickness interstitial and articular-surface tearing of supraspinatus and infraspinatus with greater than 50% partial-thickness articular-surface and interstitial tearing of mid and posterior supraspinatus between musculotendinous junction and critical zone on images 7-8, series 5. Mild subscapularis tendinosis. Teres minor muscle/tendon appears grossly intact without evidence of tearing. No significant atrophy or fatty degeneration of the visualized rotator cuff musculature. BICEPS TENDON: Moderate fluid in the bicipital groove. Thinning of the intra-articular long head of biceps tendon. LABRUM: Degeneration and volume loss of the majority of the labrum. GLENOHUMERAL JOINT: Moderate glenohumeral chondromalacia. Small debris containing glenohumeral joint effusion. Inferior glenohumeral ligament appears intact. AC JOINT AND ACROMIOCLAVICULAR ARCH: Mild degenerative change of the left AC joint. Type 2 acromion. BONE MARROW: Nonspecific marrow edema in the humeral head and proximal humeral diaphysis. No acute fracture or dislocation. OUTLET SPACES: Suprascapular notch and quadrilateral space grossly unremarkable in appearance. No left axillary lymphadenopathy. Procedure Note Alex Perez MD - 01/30/2023 EXAMINATION: MRI OF THE LEFT SHOULDER WITHOUT CONTRAST 01/30/2023 10:25 am TECHNIQUE: Multiplanar multisequence MRI of the left shoulder was performed withoutthe administration of intravenous contrast. COMPARISON: Left shoulder plain radiographs from 01/17/2023. HISTORY: ORDERING SYSTEM PROVIDED HISTORY: Left shoulder pain, unspecifiedchronicity 67-year-old female with left shoulder pain. FINDINGS: ROTATOR CUFF: Trace fluid in the subacromial/subdeltoid bursa. Multifocal partial-thickness interstitial and articular-surface tearingof supraspinatus and infraspinatus with greater than 50% partial-thickness articular-surface and interstitial tearing of mid and posteriorsupraspinatus between musculotendinous junction and critical zone on images 7-8, series5. Mild subscapularis tendinosis. Teres minor muscle/tendon appears grossly intact without evidence oftearing. No significant atrophy or fatty degeneration of the visualized rotatorcuff musculature. BICEPS TENDON: Moderate fluid in the bicipital groove. Thinning of the intra-articular long head of biceps tendon. LABRUM: Degeneration and volume loss of the majority of the labrum. GLENOHUMERAL JOINT: Moderate glenohumeral chondromalacia. Small debris containing glenohumeral joint effusion. Inferior glenohumeral ligament appears intact. AC JOINT AND ACROMIOCLAVICULAR ARCH: Mild degenerative change of the leftAC joint. Type 2 acromion. BONE MARROW: Nonspecific marrow edema in the humeral head and proximal humeral diaphysis. No acute fracture or dislocation. OUTLET SPACES: Suprascapular notch and quadrilateral space grossly unremarkable in appearance. No left axillary lymphadenopathy. IMPRESSION: 1. Multifocal, partial-thickness interstitial and articular-surfacetearing of supraspinatus and infraspinatus with greater than 50%partial-thickness articular-surface and interstitial tearing of mid and posteriorsupraspinatus between musculotendinous junction and critical zone. 2. Mild subscapularis tendinosis. 3. Moderate bicipital groove tenosynovitis. Thinning of theintra-articular long head of biceps tendon. 4. Degeneration and volume loss of the majority of the labrum. 5. Moderate glenohumeral chondromalacia. Small debris containing glenohumeral joint effusion. 6. Mild degenerative change of the left AC joint. 7. Nonspecific marrow edema in the humeral head and proximal humeral diaphysis. us Kamaljit Lopez MD IMG MRI ORDERABLES Final Result documented in this encounter Visit Diagnoses Diagnosis Left shoulder pain, unspecified chronicity- Primary Left shoulder pain, unspecified chronicity documented in this encounter Additional Health Concerns Infection Onset Date Last Indicated Resolved Time ESBL (Extended Spectrum Beta Lactamase) 12/28/2018 1 documented as of this encounter Care Teams Service Planner Relationship Specialty Start Date End Date Kamaljit Lopez MD [address] [place] [address] PCP - General 01/15/12 documented as of this encounter
--- OUTSIDE RECORDS SUMMARY | 2025-01-06 13:42 | XMS_ITS | Clinical Summary ---
Author Organization [facility] Address [address] [facility], [address] [place] [address] Care Team Providers Care Ingredient Scaler Helper Name Role Phone Kamaljit Lopez MD Primary Care Provider [phone] Allergies Active Allergy Reactions Criticality Noted Date Comments Sulfamethoxazole-Trimethoprim Nausea Only 11/19 Cephalexin Diarrhea 11/02/2024 Clindamycin/Lincomycin Diarrhea 09/09/2024 Codeine 01/08/2019 Lisinopril High 01/08/2019 Penicillins Hives Medium 11/19/2017 Silver Rash Low 09/09/2024 Medications carvedilol (COREG) 25 MG tablet Take 1 tablet by mouth 3 times daily Active atorvastatin (LIPITOR) 10 MG tablet Take 1 tablet by mouth nightly Active loratadine (CLARITIN) 10 MG capsule Take 1 capsule by mouth nightly Active acetaminophen (TYLENOL) 500 MG tablet Take 2 tablets by mouth every 8 hours for 7 days 42 tablet 01/04/2019 Active diclofenac (VOLTAREN) 75 MG EC tablet Take 1 tablet by mouth 2 times daily Active irbesartan (AVAPRO) 300 MG tablet TAKE 1 TABLET BY MOUTH ONCE DAILY 05/07/2021 Active traMADol (ULTRAM) 50 MG tablet Take 2 tablets by mouth 3 times daily. 06/11/2021 Active vitamin D3 (CHOLECALCIFERO L) 10 MCG (400 UNIT) TABS tablet Take 1 tablet by mouth daily Active IRON, FERROUS SULFATE, PO Take 1 tablet by mouth daily Active buprenorphine 20 MCG/HR PTWK Place 1 patch onto the skin once a week. 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 09/23/2024 Open wound of left lower extremity 09/09/2024 Cellulitis of leg without foot, left 04/06/2024 Laceration of left lower extremity 04/06/2024 Ulcer of left pretibial region with fat layer ex posed 04/06/2024 S/P total knee replacement using cement, left Hypertension 02/03/2023 ESBL (extended spectrum beta -lactamase) producing bacteria infection 02/01/2019 Mild malnutrition 01/30/2019 SIRS (systemic inflammatory response syndrome) 1 Feculent Peritonitis 01/02/2019 Sigmoid diverticulitis 01/02/2019 Obesity (BMI 30.0-34.9) 01/02/2019 Bowel perforation 12/28/2018 Resolved Problems Problem Noted Date Diagnosed Date Resolved Date Posterior subcapsular age-re lated cataract of left eye 07/27/2023 07/28/2023 UTI (urinary tract infection) 01/29/2019 02/28/2019 Acute respiratory failure 12/29/2018 Gallstone pancreatitis 11/19/201701/02 Acute cholecystitis 11/19/2017 01/03/20 19 Dilated intrahepatic bile duct 11/19/2017 01/02/2019 Calculus of gallbladder with acute cholecystitis and obstruction 11/19/2017 01/02/2019 Encounters Date Type Department Care Team Description 12/10/2024 12:41 PM EDT - 12/12/2024 11:59 PM EDT Hospital Encounter [facility] [address] [place] [id number] Abnormal chest sounds; Idiopathic chronic venous hypertension of left lower extremity with ulcer (HCC); Skin ulcer of popliteal region, left, with fat layer exposed (HCC); Peripheral vascular disease, unspecified Discharge Disposition: Home or Self Care 11/29/2024 Transcribe Orders HR SCHEDULING/CONCIERG [address] [place] [address] Viola Tripathi PA-Jama Sprain of joints and ligaments of unspecified parts of neck, subsequent encounter (Primary Dx) 11/29/2024 Transcribe Orders Gabriel Pre Access [address] [place] [address] Rhona Farrar PA Abnormal chest sounds (Primary Dx); Idiopathic chronic venous hypertension of left lower extremity with ulcer (HCC); Skin ulcer of popliteal region, left, with fat layer exposed (HCC); Peripheral vascular disease, unspecified 11/29/2024 Telephone [facility] [address] [place] [address] [place] [phone] Cat Russell, RN Other 11/16/2024 Telephone [facility] [address] [place] [phone] Cat Russell, RN Other 11/16/2024 Orders Only [facility] [address] [place] [phone] Cory Ravi DPM Pseudomonas infection (Primary Dx) 11/02/2024 9:51 AM EDT - 11/02/2024 11:59 PM EDT Hospital Encounter [facility] [address] [place] [phone] Cory Ravi DPM Open wound of left lower extremity, subsequent encounter (Primary Dx) Discharge Disposition: Home or Self Care 11/02/2024 Travel from Last 3 Months Immunizations Immunization Administration Dates Next Due Influenza Virus Vaccine 01/05/2019 Family History Medical History Relation Name Comments Breast Cancer Mother Relation Name Status Comments Father Mother Alive Social History Tobacco Use Types Packs/Day Years Used Date Smoking Tobacco: Never Smokeless Tobacco: Never Tobacco Cessation:Counseling Given: Not Answered Alcohol Use Standard Drinks/Week Comments Not Currently [...] Sign Reading Time Taken Comments Blood Pressure 164/69 11/02/2024 9:56 AM EDT Pulse 85 11/02/2024 9:56 AM EDT Temperature 37.1 C (98.7 F) 11/02/2024 9:56 AM EDT Respiratory Rate 20 11/02/2024 9:56 AM EDT Oxygen Saturation 96% 07/28/2023 2:3 0 PM EDT Inhaled Oxygen Concentration - - Weight 85.2 kg (187 lb 12.8 oz) 10/06/2024 5:45 AM EDT as of 04/06/24 Height 154.9 cm (5' 1 ) 10/06/2024 5:45 AM EDT historical value Body Mass Index 35.48 10/06/2024 5:45 AM EDT Plan of Treatment Health Maintenance Due Date Last Done Comments Depression Screen 1968 Hepatitis C screen 02/23/1974 Fecal-DNA (Cologuard): Average risk 02/23/2001 Sigmoidoscopy/CT colonography 02/23/2001 Pneumococcal 50+ years Vaccine (1 of 1 - PCV) 02/23/2006 Shingles vaccine (1 of 2) 02/23/2006 02/23/2006 DEXA (modify frequency per FRAX score) 02/23/2011 Respiratory Syncytial Virus (RSV) or age 60 yrs+ (1 - Risk 60-74 years 1-dose series) 2016 FIT/FOBT: Average risk 05/22/2022 05/22/2021 Lipids 11/15/2023 11/14/2022, 05/08, 10/31/2018 Annual Wellness Visit (Medicare Advantage) 04/07/2024 Flu vaccine (#1) 11/05/2024 01/12/2021, , 01/18/2019, Additional history exists COVID-19 Vaccine ( season) 2024 04/19/2021, 08/12/2020, 07/20/2020 Breast cancer screen 01/05/2025 01/06/2024, 12/26/2022, 06/09/2019 Diabetes screen 11/14/2025 11/14/2022, 05/08, 10/31/2018 Colonoscopy 11/11/2029 11/12/2019, 10/2019, 09/10/2019 Colorectal Cancer Screen 11/11/2029 DTaP/Tdap/Td vaccine (2 - Td or Tdap) 09/01/2034 09/01/2024 A1C test (Diabetic or Prediabetic) Discontinued 11/14/2022, 05/22/2021, 10/31/2018 GFR test (Diabetes, CKD 3-4, OR last GFR 15-59) Discontinued 01/07/2023, 11/14/2022, 05/22/2021, Additional history exists Hepatitis A vaccine Aged Out No longe r eligible based on patient's age to complete this topic Hepatitis B vaccine Aged Out No longe r eligible based on patient's age to complete this topic Hib vaccine Aged Out No longer eligi ble based on patient's age to complete this topic Meningococcal (ACWY) vaccine Aged Out No longer eligible based on patient's age to complete this topic Meningococcal B vaccine Aged Out No l onger eligible based on patient's age to complete this topic Polio vaccine Aged Out No longer elig ible based on patient's age to complete this topic Medical Devices Implanted Type Area Dope Weigh Operator Device Identifier Shelf Expiration Date Model / Serial / Lot Dup Use [id number] Impl Knee Psn All Poly Pat Ply 29mm - [id number] Implanted:Qty: 1 on 02/03/2023 by Bertin Gomez MD at [facility] Knee Left: Knee [employer] 03/11/2027 [id number] / / [id number] Impl Knee Psn Fem Cr Cmt Ccr Std Sz8 L - [id number] Implanted:Qty: 1 on 02/03/2023 by Bertin Gomez MD at [facility] Knee Left: Knee [employer] 04/08/2032 [id number] / / [id number] Cement Bne 40gm Hi Visc Radpq For Rev Surg - [id number] Implanted:Qty: 1 on 02/03/2023 by Bertin Gomez MD at [facility] Left: Knee [employer]- 07/05/2025 [id number] / / [id number] Cement Bne 40gm Hi Visc Radpq For Rev Surg - [id number] Implanted:Qty: 1 on 02/03/2023 by Bertin Gomez MD at [facility] Left: Knee [employer]- 07/05/2025 [id number] / / [id number] Extension Stem L30mm Rpc15sm Knee Tapr Deangelo Persona - [id number] Implanted:Qty: 1 on 02/03/2023 by Bertin Gomez MD at [facility] Left: Knee [employer]- 12/13/2032 [id number] / / [id number] Extension Stem Sz E 5deg L Tibl Knee Deangelo Sylvia Tib Persona - [id number] Implanted:Qty: 1 on 02/03/2023 by Bertin Gomez MD at [facility] Left: Knee [employer]- 12/07/2032 [id number] / / [id number] Psn Mc Ve Asf L 20mm 8-11 Ef - [id number] Implanted:Qty: 1 on 02/03/2023 by Bertin Gomez MD at [facility] Left: Knee [employer]- 07/06/2023 [id number] / / [id number] Lens Intocu L12.5 Mm Od6 Mm +23.0 D Hydrophobic Envista - [id number] Implanted:Qty: 1 on 07/28/2023 by Guido Gerber DO at [facility]- 03/06/2026 [id number] / [id number] / Explanted Type Area Dope Weigh Operator Device Identifier Shelf Expiration Date Model / Serial / Lot Screw Bne L48mm Constrn Cndyl Knee Hex Hd Stem For Leg Nxgn - [id number] Explanted:Qty : 1 on 02/03/2023 by Bertin Gomez MD at [facility] Left: Knee [employer]- 12/02/2032 [id number] / / [id number] Screw Bne L48mm Constrn Cndyl Knee Hex Hd Stem For Leg Nxgn - [id number] Explanted:Qty : 1 on 02/03/2023 by Bertin Gomez MD at [facility] Left: Knee [employer]WD 11/23/2032 [id number] / / [id number] Procedures Procedure Name Priority Date/Time Associated Diagnosis Comments VAS LOWER EXTREMITY ARTERIAL SEGMENTAL PRESSURES W PPG Routine 12/10/2024 1:30 PM EDT Abnormal chest sounds Idiopathic chronic venous hypertension of left lower extremity with ulcer (HCC) Skin ulcer of popliteal region, left, with fat layer exposed (HCC) Peripheral vascular disease, unspecified CULTURE, WOUND (WITH GRAM STAIN) [employer] Label Print 11/02/2024 10:07 AM EDT Open wound of left lower extremity, subsequent encounter CRISSY LUDY DIGITAL SCREEN SELF REFERRAL W OR WO CAD BILATERAL Routine 01/06/2024 3:49 PM EDT Visit for screening mammogram BASIC METABOLIC PANEL Routine 01/07/2023 1:06 PM EDT LIPID PANEL Routine 11/14/2022 11:23 AM EDT HEMOGLOBIN A1C Routine 11/14/2022 11:23 AM EDT OCCULT BLOOD SCREEN Routine 05/22/2021 4:08 PM EST COLONOSCOPY PROCEDURE Routine 11/12/2019 12:53 PM EDT from Last 3 Months or Most Recently Relevant to Health Maintenance Results * Vascular lower extremity arterial segmental pressures w PPG (12/10/2024 1:30 PM EDT) Right arm BP 215 mmHg [facility] Right posterior tibial 243 mmHg [facility] Right dorsalis pedis BP 223 mmHg [facility] Right peroneal BP 168 mmHg [facility] Right TEDDY 1.13 [facility] CPACS Left arm BP 205 mmHg [facility]ACS Left posterior tibial 243 mmHg [facility] CV CPACS Left dorsalis pedis BP 223 mmHg [facility] CV CPACS Left peroneal BP 200 mmHg [facility] CV CPACS Left TEDDY 1.13 [facility] CV CPACS Anatomical Region Laterality Modality Vascular Vascular Ultraso und Narrative 12/10/2024 5:39 PM EDT Right side findings: Resting TEDDY is 1.13. This is within the normal range. Left side findings: Resting TEDDY is 1.13. This is within the normal range. TEDDY Right side findings: Normal resting TEDDY. Right PVR waveforms: Normal - lower thigh, calf and ankle. Calf augmentation is present. The right posterior tibial artery and dorsalis pedis artery has multiphasic (normal) waveforms. Right toe PPG is normal. Left side findings: Normal resting TEDDY. Left PVR waveforms: Calf augmentation is present. Normal - lower thigh, calf and ankle. The left posterior tibial artery and dorsalis pedis artery has multiphasic (normal) waveforms. Left toe PPG is normal. Rhona HILL CV VASCULAR ORDERABLES Final Result * (ABNORMAL) Culture, Wound (with Gram Stain) (11/02/2024 10:07 AM EDT) Specimen Description .LEG 11/02/2024 10:07 AM EDT [facility] Direct Exam NO NEUTROPHILS SEEN 11/02/2024 10:07 AM EDT [facility] Direct Exam RARE GRAM NEGATIVE RODS 11/02/2024 10:07 AM EDT [facility] Culture PSEUDOMONAS AERUGINOSA MODERATE GROWTH Identification by MALDI-TOF(A) 11/02/2024 10:07 AM EDT [facility] SPECIMEN FROM WOUND / Unknown 11/02/2024 10:07 AM EDT 11/02/2024 10:24 AM EDT Narrative Organism Antibiotic Method Susceptibility Pseudomonas aeruginosa cefepime BACTERIAL SUSCEPTIBILITY PANEL DENISE 2: Sensitive Pseudomonas aeruginosa levofloxacin BACTERIAL SUSCEPTIBILITY PANEL DENISE 0.25: Sensitive Pseudomonas aeruginosa meropenem BACTERIAL SUSCEPTIBILITY PANEL DENISE <=0.25: Sensitive Pseudomonas aeruginosa piperacillin-tazobact am BACTERIAL SUSCEPTIBILITY PANEL DENISE <=4: Sensitive Pseudomonas aeruginosa tobramycin BACTERIAL SUSCEPTIBILITY PANEL DENISE <=1: Sensitive us Cory Ravi DPM MICROBIOLOGY - GENERAL ORDERA BLES Final Result [facility] [address] [place] [address] [facility] [address] [place] [address] * CRISSY LUDY DIGITAL SCREEN SELF REFERRAL W OR WO CAD BILATERAL (01/06/2024 3:49 PM EDT) Anatomical Region Laterality Modality Breast Bilateral Mammography 01/08/2024 9:01 AM EDT Impressions 01/08/2024 9:01 AM EDT No mammographic evidence of malignancy BIRADS: BIRADS - CATEGORY 1 Negative. Normal interval follow-up is recommended in 12 months. OVERALL ASSESSMENT - NEGATIVE A letter of notification will be sent to the patient regarding the results. The [employer] recommends annual mammograms for women 40 years and older. Performing Facility: [facility] [address] [place] [address] Narrative 01/08/2024 9:01 AM EDT EXAMINATION: SCREENING DIGITAL BILATERAL MAMMOGRAM WITH TOMOSYNTHESIS, 01/06/2024 TECHNIQUE: Screening mammography of the bilateral breasts was performed with tomosynthesis. 2D standard and 3D tomosynthesis combination imaging performed through both breasts in the MLO and CC projection. Computer aided detection was utilized in the interpretation of this exam. COMPARISON: December 26, 2022 and June 09, 2019 HISTORY: Screening. FINDINGS: There are scattered areas of fibroglandular density. There is no dominant mass, architectural distortion or concerning grouping of microcalcification in either breast. Kamaljit Lopez MD IMG MAMMOGRAPHY ORDERABLES Sho l Result * (ABNORMAL) Basic Metabolic Panel (01/07/2023 1:06 PM EDT) Sodium 141 135 - 144 mmol/L 01/07/2023 1:06 PM EDT [facility] Potassium 3.9 3.7 - 5.3 mmol/L 01/07/2023 1:06 PM EDT [facility] Chloride 103 98 - 107 mmol/L 01/07/2023 1:06 PM EDT [facility] CO2 28 20 - 31 mmol/L 01/07/2023 1:06 PM EDT [facility] Anion Gap 10 9 - 17 mmol/L 01/07/2023 1:06 PM EDT [facility] Glucose 112(H) 70 - 99 mg/dL 01/07/2023 1:06 PM EDT [facility] BUN 22 8 - 23 mg/dL 01/07/2023 1:06 PM EDT [facility] Creatinine 1.0(H) 0.5 - 0.9 mg/dL 01/07/2023 1:06 PM EDT [facility] Est, Glom Filt Rate >60 >60 mL/min/1.7 3m2 01/07/2023 1:06 PM EDT [facility] Comment: These results are not intended for use in patients <18 years of age. eGFR results are calculated without a race factor using the 2020 CKD-EPI equation. Careful clinical correlation is recommended, particularly when comparing to results calculated using previous equations. The CKD-EPI equation is less accurate in patients with extremes of muscle mass, extra-renal metabolism of creatine, excessive creatine ingestion, or following therapy that affects renal tubular secretion. BUN/Creatinine Ratio 22(H) 9 - 20 01/07/2023 1:06 PM EDT [facility] Calcium 9.0 8.6 - 10.4 mg/dL 01/07/2023 1:06 PM EDT [facility] Blood BLOOD SPECIMEN / Unknown 01/07/2023 1:06 PM EDT 01/07/2023 1:07 PM EDT us Bertin Gomez MD CHEMISTRY ORDERABLES Final Re sult [facility] [address] [phone] * Hemoglobin A1C (11/14/2022 11:23 AM EDT) Hemoglobin A1C 5.5 4.0 - 6.0 % 11/14/2022 11:23 AM EDT [facility] Estimated Avg Glucose 111 mg/dL 11/14/2022 11:23 AM EDT [facility] Comment: The ADA and AACC recommend providing the estimated average glucose result to permit better patient understanding of their HBA1c result. 11/14/2022 11:2 3 AM EDT 11/14/2022 11:24 AM EDT us Kamaljit Lopez MD CHEMISTRY ORDERABLES Final Resu lt [facility] [address] [place] [address], [facility] [phone] [facility] [address] [place] [address], [facility] [phone] * (ABNORMAL) Lipid Panel (11/14/2022 11:23 AM EDT) Cholesterol 149 <200 mg/dL 11/14/2022 11:23 AM EDT [facility] Comment: Cholesterol Guidelines: <200 Desirable 200-240 Borderline >240 Undesirable HDL 40(L) >40 mg/dL 11/14/2022 11:23 AM EDT [facility] Comment: HDL Guidelines: <40 Undesirable 40-59 Borderline >59 Desirable LDL Cholesterol 89 0 - 130 mg/dL 11/14/2022 11:23 AM EDT [facility] Comment: LDL Guidelines: <100 Desirable 100-129 Near to/above Desirable 130-159 Borderline >159 Undesirable Direct (measured) LDL and calculated LDL are not interchangeable tests. Chol/HDL Ratio 3.7 <5 11/14/2022 11:23 AM EDT [facility] Comment: Triglycerides 98 <150 mg/dL 11/14/2022 11:23 AM EDT [facility] Comment: Triglyceride Guidelines: <150 Desirable 150-199 Borderline 200-499 High >499 Very high Based on AHA Guidelines for fasting triglyceride, January 2012. 11/14/2022 11:2 3 AM EDT 11/14/2022 11:24 AM EDT us Kamaljit Lopez MD CHEMISTRY ORDERABLES Final Resu lt [facility] [address] [place] [address], [facility] [phone] [facility] [employer] [employer] [address] [place] [address], [facility] [phone] * Occult Blood Screen (05/22/2021 4:08 PM EST) Occult Blood, Stool #1 NEGATIVE NEGATIVE 05/22/2021 4:08 PM [facility] Date, Stool #1 [phone] 05/22/2021 4:08 PM [facility] Time, Stool #1 [phone] 05/22/2021 4:08 PM [facility] Occult Blood, Stool #2 NOT REPORTED NEGATIVE 05/22/2021 4:08 PM [facility] Date, Stool #2 NOT REPORTED 05/22/2021 4:08 PM [facility] Time, Stool #2 NOT REPORTED 05/22/2021 4:08 PM [facility] Occult Blood, Stool #3 NOT REPORTED NEGATIVE 05/22/2021 4:08 PM [facility] Date, Stool #3 NOT REPORTED 05/22/2021 4:08 PM [facility] Time, Stool #3 NOT REPORTED 05/22/2021 4:08 PM [facility] 05/22/2021 4:08 PM EST 05/22/2021 4:09 PM EST Kamaljit Lopez MD BODY FLUIDS AND STOOLS ORDERABL ES Final Result [facility] [address] [place] [address], [facility] [phone] * Colonoscopy (11/12/2019 12:53 PM EDT) Jessica Johnson User - 11/12/2019 12:53 PM EDT No dictation us Lyndsey Aldana I, DO ENDOSCOPY ORDERABLES Final Result from Last 3 Months or Most Recently Relevant to Health Maintenance Additional Health Concerns Infection Onset Date Last Indicated ESBL (Extended Spectrum Beta Lactamase) 12/29/19 19 01/29/2019 Insurance [employer] MEDICARE Advance Directives * Full Code (Latest Code Status on File) Date Activated Date Inactivated Comments 07/28/2023 11:49 AM 07/28/2023 4:58 PM * Full Code Date Activated Date Inactivated Comments 02/03/2023 5:23 PM 02/04/2023 6:15 PM * Full Code Date Activated Date Inactivated Comments 01/29/2019 7:34 PM 02/01/2019 9:18 PM * Full Code Date Activated Date Inactivated Comments 12/28/2018 4:13 AM 01/04/2019 7:05 PM Care Teams Ingredient Scaler Helper Relationship Specialty Start Date End Date Kamaljit Lopez MD [address] [place] [address] PCP - General 01/15/12
--- OUTSIDE RECORDS SUMMARY | 2025-01-06 13:42 | XMS_ITS | Encounter Summary ---
Author Organization [facility] Address [address] [facility] [facility], [address] [place] [address] Care Team Providers Care Cigar Binder Name Role Phone Kamaljit Lopez MD Primary Care Provider [phone] Reason for Referral * Other (Routine) - Closed Specialty Diagnoses / Procedures Referred By Contac t Referred To Contact Radiology Diagnoses Essential (primary) hypertension Encounter for screening mammogram for malignant neoplasm of breast Procedures CRISSY LUDY DIGITAL SCREEN BILATERAL Kamaljit Lopez MD [address] [place] [phone] Phone: tel: fax: Referral ID Status Reason Start Date Expiration Date Visits Re quested Visits Authorized [id number] Closed 10/25/2022 10/25/2023 1 1 Encounter Details Date Type Department Care Team (Latest Contact Info) Description 10/25/2022 Transcribe Orders [facility] Pre Access [address] [place] [phone] Kamaljit Lopez MD [address] [place] [phone] Essential (primary) hypertension (Primary Dx); Encounter for screening mammogram for malignant neoplasm of breast Social History Tobacco Use Types Packs/Day Years [...] documented as of this encounter Results * CRISSY LUDY DIGITAL SCREEN BILATERAL (12/26/2022 3:32 PM EDT) Anatomical Region Laterality Modality Breast Bilateral Mammography 12/26/2022 3:23 PM EDT Impressions 12/26/2022 7:26 PM EDT No evidence of malignancy. Advise annual screening mammography. BI-RADS 2 BIRADS: BIRADS - CATEGORY 2 Benign Findings. Normal interval follow-up is recommended in 12 months. OVERALL ASSESSMENT - BENIGN A letter of notification will be sent to the patient regarding the results. The [employer] recommends annual mammograms for women 40 years and older. Narrative 12/26/2022 7:26 PM EDT EXAMINATION: SCREENING DIGITAL BILATERAL MAMMOGRAM WITH TOMOSYNTHESIS, 12/26/2022 TECHNIQUE: Screening mammography was performed with tomosynthesis including MLO and CC views of the bilateral breasts. Computer aided detection was used for the interpretation of this exam. COMPARISON: 09 June 2019; 16 January 2017 HISTORY: Screening. Positive family history of breast cancer; mother at 65. No breast interventions. No hormonal replacement therapy. FINDINGS: Breasts are composed of scattered fibroglandular density. No skin thickening, nipple contour changes, suspicious calcifications, suspicious masses, areas of architectural distortion or significant interval changes are noted. A few benign-appearing calcifications are noted. Kamaljit Lopez MD IMG MAMMOGRAPHY ORDERABLES Sho l Result documented in this encounter Visit Diagnoses Diagnosis Essential (primary) hypertension- Primary Unspecified essential hypertension Encounter for screening mammogram for malignant neoplasm of breast Other screening mammogram Essential (primary) hypertension Unspecified essential hypertension Encounter for screening mammogram for malignant neoplasm of breast Other screening mammogram documented in this encounter Additional Health Concerns Infection Onset Date Last Indicated Resolved Time ESBL (Extended Spectrum Beta Lactamase) 12/28/2018 1 documented as of this encounter Care Teams Cigar Binder Relationship Specialty Start Date End Date Kamaljit Lopez MD [address] [place] [address] PCP - General 01/15/12 documented as of this encounter
== END 2025-01-06 13:40 | disposition home or self-care (01) ==
LOC: WC 13:39
PROVIDERS: PCP Family Medicine; Visit Provider Physician Assistant
DX: I87.312 Chronic venous hypertension (idiopathic) with ulcer of left lower extremity (principal); L97.822 Non-pressure chronic ulcer of other part of left lower leg with fat layer exposed
CPT/HCPCS: G0463

== ENCOUNTER 2025-01-20 12:53 | Outpatient (OUT) | payer MEDICARE, SELFPAY | END 2025-01-20 12:54 | disposition home or self-care (01) | LOC: WC 12:53 | PROVIDERS: PCP Family Medicine; Visit Provider Physician Assistant | DX: I87.312 Chronic venous hypertension (idiopathic) with ulcer of left lower extremity (principal); L97.822 Non-pressure chronic ulcer of other part of left lower leg with fat layer exposed | CPT/HCPCS: G0463 ==

== ENCOUNTER 2025-02-10 10:04 | Outpatient (OUT) | payer MEDICARE, SELFPAY | END 2025-02-10 10:05 | disposition home or self-care (01) | LOC: WC 02-22 10:05 | PROVIDERS: PCP Family Medicine; Visit Provider Physician Assistant | DX: I87.312 Chronic venous hypertension (idiopathic) with ulcer of left lower extremity (principal); L97.822 Non-pressure chronic ulcer of other part of left lower leg with fat layer exposed | CPT/HCPCS: G0463 ==

== ENCOUNTER 2025-03-24 13:04 | Outpatient (OUT) | payer MEDICARE, SELFPAY ==
--- OUTSIDE RECORDS SUMMARY | 2024-10-20 09:30 | XMS_ITS ---
Author Organization The [facility] in [place] Address [address] [place] [address] Care Team Providers Care Spare Hand Name Role Phone JohnDereje Primary Care Provider REASON FOR VISIT not walking straight since knee surgery Encounters Encounter Location Date Provider Diagnosis [facility] [address] [place] [address] 10/20/2024 Dereje Lopez Plan Of Treatment Next Appt Details Provider Name:Dereje Jocelynn Lopez, 01:30:00 PM, [address] [place], [address], Progress Notes * Michelle ROSEN LDOB: (70 yo F)Acc No.[id number]:10/20/2024 UNLOCKED PROGRESS NOTE Progress Note Patient: Jama Michelle DENSON :?Kamaljit Lopez ([facility]), MDDOB:1955???Age: 69 Y???Sex:FemaleDate:10/20/2024Phone:[phone]:[address] [facility], [address], [place], [place] Subjective: * Chief Complaints: * 1 . Not walking straight since knee surgery. * Medical History: Objective: * Vitals: Assessment: Plan: * Treatment: * * Electronic signature of Dereje Lopez MD, [id number] on 03/24/2025 at 01:09 PM EST Sign off status: PendingVisit Status:?CANCPHONE (Cancelled Phone) * Provider: Poornima Lopez ([facility])MD Date: 0 10/20/2024 Generated for Printing/Faxing/eTransmitting on:?03/24/2025 01:09 PM EST
--- OUTSIDE RECORDS SUMMARY | 2024-11-30 06:30 | XMS_ITS ---
Author Organization The [facility] in [place] Address [address] [place] [address] Care Team Providers Care Statue Maker Name Role Phone JohnDereje Primary Care Provider [phone] REASON FOR VISIT possible neuropathy Encounters Encounter Location Date Provider Diagnosis [facility] [address] [place] [address] 11/30/2024 Dereje Lopez Plan Of Treatment Next Appt Details Provider Name:Dereje Lopez, 01:30:00 PM, [address] [place], [address], Progress Notes * Michelle ROSEN LDOB: (70 yo F)Acc No.[id number]:11/30/2024 UNLOCKED PROGRESS NOTE Progress Note Patient: Jama Michelle DENSON :?Kamaljit Hurley John ([facility]), MDDOB:1955???Age: 69 Y???Sex:FemaleDate:11/30/2024Phone:[phone]:[address] [facility], [place], [place] Subjective: * Chief Complaints: * 1 . Possible neuropathy. * Medical History: Objective: * Vitals: Assessment: Plan: * Treatment: * * Electronic signature of Dereje Lopez MD, [id number] on 03/24/2025 at 01:09 PM EST Sign off status: PendingVisit Status:?CANCPHONE (Cancelled Phone) * Provider: Poornima Lopez ([facility])MD Date: 0 11/30/2024 Generated for Printing/Faxing/eTransmitting on:?03/24/2025 01:09 PM EST
--- OUTSIDE RECORDS SUMMARY | 2025-02-22 05:30 | XMS_ITS ---
Author Organization [facility] Address [address] [place] [address] Care Team Providers Care Beader Tender Name Role Phone Kamaljit Lopez Primary Care Provider Bertin Cheek Unavailable [phone] Allergies Allergen (clinical drug ingredient) Drug/Non Drug Allergy documented on EMR Reaction Allergy Type Onset Date Status sulfamethoxazole / trimethoprim Bactrim Unknown Drug Allergy Active REASON FOR VISIT LEFT WRIST FX RECHECK, S/P LEFT TKA Medications Medication SIG (Take, Route, Frequency, Duration) Notes Start Date End Date Status ZyrTEC ORAL ZYRTEC Not-TakingLinzess 145 mcgtake 1 capsule by oral route every day on an empty stomach at least 30 minutes before 1st meal of the day ORALLINZESSNot-Taking Losartan Potassium 100 mgtake 1 tablet by oral route every day ORALLOSARTAN POTASSIUMNot-TakingCloNIDine Hydrochloride 0.1 mgtake 1 tablet by oral route 2 times every day ORALCLONIDINE IWYPkg-SiqqumVdvigmmohofzq-Xpbrjlzaowb Bitartrate 325 mg-5 mg1-2 tab(s) PRN PAIN ORAL every 6 hours; Duration: 7 days HYDROCODONE-NPYLHXQXLACUJ63/08/2023ctiveTraMADol Hydrochloride 50 mgtake 1 tablet by oral route every 12 hours as needed ORALTRAMADOL HCLActiveAtorvastatin Calcium 10 mgtake 1 tablet by oral route every day ORALATORVASTATIN CALCIUM Activecarvedilol 25 mgtake 1 tablet by oral route 2 times every day with food ORALCARVEDILOLActiveDiclofenac Sodium sodium 75 mgtake 1 tablet by oral route 2 times every day ORALDICLOFENAC SODIUMActive Social History Tobacco Use: Social History Observation Description Date Details (start date - stop date) Never Smoker NA - NA AUDIT-C (Standard) Question Answer Notes Did you have a drink containing alcohol in the p ast year? No Ozgohq2WisatltnjumwydQwcjcnuoToduhng Control (Standard) Question Answer Notes Tobacco use: Nonsmoker Problems Problem Type SNOMED Code ICD Code Onset Dates Problem Status W/U Status Risk Notes Problem Closed fracture of d istal end of left radius (disorder) (13693325016495055) Other extraarticular fracture of lower end of left radius, initial encounter for closed fracture (S52.552A) Activeconfirmed Encounters Encounter Location Date Provider Diagnosis [facility] [facility] [address] [place] [address] [place], [place] [address], [place] [address] 02/22/2025 Bertin Gomez Other extraarticular fracture of lower end of left radius, initial encounter for closed fracture S52.552A Assessments Encounter Date Diagnosis (ICD Code) Assessment Notes Treatment Notes Treatment Clinical Notes Section Notes 02/22/2025 Other extraarticular fracture of lower end of left radius, initial encounter for closed fracture (ICD-10 - S52.552A) Extra-articular fracture left distal xjfegy1002/22/2025OtherFindings were discussed with the patient. She is given a wrist cock up brace to use as needed. We offered her physical therapy which she declined. Will see her back in the office in 3 to 4 weeks witha repeat x-ray of the wrist.Extra-articular fracture left distal radius Plan Of Treatment Treatment Notes Assessment Notes Other Findings were discus sed with the patient. She is given a wrist cock up brace to use as needed. We offered her physical therapy which she declined. Will see her back in the office in 3 to 4 weeks with a repeat x-ray of the wrist. Pending Test Test Name Order Date [facility] WRIST LEFT [id number] 02/22/2025 Next Appt Details Follow Up: 3 Weeks, Reason: Progress Notes * DREAD PATELDOB:1955 (70 yo F)Acc No.[id number]:02/22/2025 Patient:?DREAD PATEL :?Bertin Dean Jason, MDDOB:1955???Age:69 Y ???Sex:FemaleDate:02/22/2025Phone:[phone]:[address], [place], [id number]:Kamaljit Lopez Subjective: * Chief Complaints: * 1 . LEFT WRIST FX RECHECK, S/P LEFT TKA. * HPI: ???HPI:? Patient comes in today for follow-up of her left wrist fracture. There are fracture through the distal radial metaphysis. She comes out of the cast today. * Medical History: R espiratory problems: Yes, High Blood Pressure: Yes, Anxiety: Yes, Drug Allergies: Yes. * Surgical History: L riley 2003, Rt knee replacement 2006, Cholecystectomy 2017, Left total knee arthroplasty 01/2023. * Family History: G randparents: diagnosed with Lung disease, Arthritis, Diabetes. M other: diagnosed with Stroke, Heart trouble, Arthritis, Cancer. F ather: diagnosed with Stroke, Heart trouble. * Social History: E xercise regularly D o you exercise? Y es. W hat is your place of residence? W here do you live? P rivate home. A EZRA-C (Standard) D id you have a drink containing alcohol in the past year? N o, P oints 0 , I nterpretation N egative. T obacco Control (Standard) T obacco use: N onsmoker. * Medications: T aking Diclofenac Sodium sodium 75 mg delayed release tablet take 1 tablet by oral route 2 times every day ORAL , Notes to Pharmacist: DICLOFENAC SODIUM, Taking carvedilol 25 mg tablet take 1 tablet by oral route 2 times every day with food ORAL , Notes to Pharmacist: CARVEDILOL, Taking Atorvastatin Calcium 10 mg tablet take 1 tablet by oral route every day ORAL , Notes to Pharmacist: ATORVASTATIN CALCIUM, Taking TraMADol Hydrochloride 50 mg tablet take 1 tablet by oral route every 12 hours as needed ORAL , Notes to Pharmacist: TRAMADOL HCL, Taking Acetaminophen- Hydrocodone Bitartrate 325 mg-5 mg tablet 1-2 tab(s) PRN PAIN ORAL every 6 hours , Notes to Pharmacist: HYDROCODONE-ACETAMINOPHEN, Not-Taking/PRN Linzess 145 mcg capsule take 1 capsule by oral route every day on an empty stomach at least 30 minutes before 1st meal of the day ORAL , Notes to Pharmacist: LINZESS, Not-Taking/PRN ZyrTEC ORAL , Notes to Pharmacist: ZYRTEC, Not-Taking/PRN CloNIDine Hydrochloride 0.1 mg tablet take 1 tablet by oral route 2 times every day ORAL , Notes to Pharmacist: CLONIDINE HCL, Not-Taking/PRN Losartan Potassium 100 mg tablet take 1 tablet by oral route every day ORAL , Notes to Pharmacist: LOSARTAN POTASSIUM, Medication List reviewed and reconciled with the patient * Allergies: B actrim. Objective: * Vitals: * Examination: ???General examination: ???Patient is an age-appropriate 69-year-old female. Patient is in no acute distressand is alert and oriented x 3. Patient is appropriately dressed and appears to be well nourished. Cast is off. Patient is noted to have some slight radial deviation and dorsal angulation to the left wrist. She is able to flex and extend her fingers. Has moderate stiffness in the wrist. ???X-ray Imaging Studies: ???3 view x-ray of the left wrist was obtained in the office. The distal radial metaphysis fracture is healing. She has lost some radial height and is a slight deviation at the distal radial ulnar joint along with some mild dorsal angulation. ??? Assessment: * Assessment: 1.?Other extraarticular fracture of lower end of left radius, initial encounter for closed fracture - S52.552A (Primary)???Extra-articular fracture left distal radius Plan: * Treatment: ?Imaging: [facility] WRIST LEFT [id number] Notes: Findings were discussed with the patient. She is given a wrist cock up brace to use as needed. We offered her physical therapy which she declined. Will see her back in the office in 3 to 4 weeks with a repeat x-ray of the wrist.?? * Procedure Codes: 7 3110 X-ray Wrist, 3 view, Modifiers: LT * Follow Up: 3 Weeks Forms: * Images: * Electronic signature of Bertin Gomez MD on 03/24/2025 at 01:09 PM ESTSign off status: Pending * Provider: Jarek Gomez MD Date: 04/24/2024 Generated for Printing/Faxing/eTransmitting on:?03/24/2025 01:09 PM EST History and Physical Notes * HPI (History of Present Illness) CategorySub-CategoryDetailNotesCategory NotesHPIPatient comes in today for follow-up of her left wrist fracture. There are fracture through the distal radial metaphysis. She comes out of the cast today. Examination CategorySub-CategoryDetailNotesCategory NotesGeneral examination Patient is an age-appropriate 69-year-old female. Patient is in no acute distress and is alert and oriented x 3. Patient is appropriately dressed and appears to be well nourished. Cast is off. Patient is noted to have some slight radial deviation and dorsal angulation to the left wrist. She is able to flex and extend her fingers. Has moderate stiffness in the wrist. X-ray Imaging Studies3 view x-ray of the left wrist was obtained in the office. The distal radial metaphysis fracture ishealing. She has lost some radial height and is a slight deviation at the distal radial ulnar jointalong with some mild dorsal angulation.
--- OUTSIDE RECORDS SUMMARY | 2025-03-15 05:30 | XMS_ITS ---
Author Organization [facility] Address [address] [place] [address] Care Team Providers Care Telegraph Messenger Name Role Phone Kamaljit Lopez Primary Care Provider Bertin Cheek Unavailable [phone] REASON FOR VISIT RC LEFT DISTAL RADIUS FX Encounters Encounter Location Date Provider Diagnosis [facility] [address] [place] [address] 03/15/2025 Bertin Gomez Plan Of Treatment No Information Progress Notes * DREAD PATELDOB:1955 (70 yo F)Acc No.[id number]:03/15/2025 Patient:?DREAD PATEL :?Bertin Gomez MDDOB:1955???Age:70 Y ???Sex:FemaleDate:03/15/2025Phone:[phone]:[address], [place], [id number]:Kamaljit Lopez Subjective: * Chief Complaints: * 1 . RC LEFT DISTAL RADIUS FX. * Medical History: Objective: * Vitals: Assessment: Plan: * Treatment: Forms: * Images: * Electronic signature of Bertin Gomez MD on 03/24/2025 at 01:08 PM ESTSign off status: Pending * Provider: Jarek Gomez MD Date: 05/16/2024 Generated for Printing/Faxing/eTransmitting on:?03/24/2025 01:08 PM EST
--- OUTSIDE RECORDS SUMMARY | 2025-03-17 05:30 | XMS_ITS ---
Author Organization [facility] Address [address] [place] [address] Care Team Providers Care Senior Materials Analyst Name Role Phone Kamaljit Lopez Primary Care Provider Bertin Cheek Unavailable [phone] Allergies Allergen (clinical drug ingredient) Drug/Non Drug Allergy documented on EMR Reaction Allergy Type Onset Date Status sulfamethoxazole / trimethoprim Bactrim Unknown Drug Allergy Active REASON FOR VISIT RC LEFT DISTAL RADIUS FX Medications Medication SIG (Take, Route, Frequency, Duration) Notes Start Date End Date Status Linzess 145 mcg take 1 capsule by or al route every day on an empty stomach at least 30 minutes before 1st meal of the day ORAL LINZESS Bzg-YptnrkWmsPAZOFRFPCXCEIKjk-JvarkzDbxAFRdjh Hydrochloride 0.1 mgtake 1 tablet by oral route 2 times every day ORALCLONIDINE HCLNot-TakingLosartan Potassium 100 mgtake 1 tablet by oral route every day ORALLOSARTAN POTASSIUMNot-Taking Acetaminophen-Hydrocodone Bitartrate 325 mg-5 mg1-2 tab(s) PRN PAIN ORAL every 6 hours; Duration: 7 daysHYDROCODONE-RTTYZQJLMIPYV24/08/2023ctiveDiclofenac Sodium sodium 75 mgtake 1 tablet by oral route 2 times every day ORALDICLOFENAC SODIUMActivecarvedilol 25 mgtake 1 tablet by oral route 2 times every day with food ORALCARVEDILOLActiveAtorvastatin Calcium 10 mgtake 1 tablet by oral route every day ORALATORVASTATIN CALCIUMActiveTraMADol Hydrochloride 50 mgtake 1 tablet by oral route every 12 hours as needed ORALTRAMADOL HCLActive Social History Tobacco Use: Social History Observation Description Date Details (start date - stop date) Never Smoker NA - NA AUDIT-C (Standard) Question Answer Notes Did you have a drink containing alcohol in the p ast year? No Mvkqkf4FutpazcynizegfNhodkdgsXfapdqh Control (Standard) Question Answer Notes Tobacco use: Nonsmoker Vital Signs Height 5FT 1IN in 03/17/2025 Weight 175 lbs 03/17/2025 BMI 33.06 03/17/2025 Encounters Encounter Location Date [facility] [address] [place] [address] 03/17/2025 Bertin Gomez Closed fracture of left wrist with routine healing, subsequent encounter S62.102D Assessments Encounter Date Diagnosis (ICD Code) Assessment Notes Treatment Notes Treatment Clinical Notes Section Notes 03/17/2025 Closed fracture of l eft wrist with routine healing, subsequent encounter (ICD-10 - S62.102D) Extra-articular fracture left distal evlbrj8703/17/2025OtherFindings were discussed with the patient. She is going to resume activities as tolerated. Will in the office as needed.Extra-articular fracture left distal radius Plan Of Treatment Treatment Notes Assessment Notes Other Findings were discus sed with the patient. She is going to resume activities as tolerated. Will in the office as needed. Pending Test Test Name Order Date [facility] WRIST LEFT [id number] 03/17/2025 Next Appt Details Follow Up: prn, Reason: Progress Notes * DREAD PATELDOB:1955 (70 yo F)Acc No.[id number]:03/17/2025 Patient:?DREAD PATEL :?Bertin Gomez, MDDOB:1955???Age:70 Y ???Sex:FemaleDate:03/17/2025Phone:[phone]:[address], [place], [id number]:Kamaljit Lopez Subjective: * Chief Complaints: * 1 . RC LEFT DISTAL RADIUS FX. * HPI: ???HPI:? Patient comes in today for follow-up of the left wrist fracture. She is currently out of splint. She is about 8 to 10 weeks post injury. * Medical History: R espiratory problems: Yes, High Blood Pressure: Yes, Anxiety: Yes, Drug Allergies: Yes. * Surgical History: L riley 2003, Rt knee replacement 2006, Cholecystectomy 2018, Left total knee arthroplasty 01/2023. * Family [...] * Allergies: B actrim. Objective: * Vitals: H t: 5FT 1IN, Wt: 175 lbs, BMI:33.06. * Examination: ???General examination: ???Patient is an age-appropriate 70-year-old female. Patient is in no acute distressand is alert and oriented x 3. Patient is appropriately dressed and appears to be well nourished. Patient is out of the splint. She has some obvious radial deviation and has about 10 degrees to 15 degrees of palmar flexion of her wrist. Circulation and sensation of fingers appear to be intact. ???X-ray Imaging Studies: ???3 view x-ray of the left wrist was obtained in the office. Patient has lost some of the radial height. She has some dorsal angulation. Fracture appears to be healing well. ??? Assessment: * Assessment: 1.?Closed fracture of left wrist with routine healing, subsequent encounter - S62.102D (Primary)???Extra-articular fracture left distal radius. Plan: * Treatment: ?Imaging: [facility] WRIST LEFT [id number] Notes: Findings were discussed with the patient. She is going to resume activities as tolerated. Will in the office as needed.?? * Preventive Medicine: ??MIPS Measures:?#128 BMI screening follow up plan?Above Normal BMI Follow-up&#1 60;Dietary management education, guidance, and counseling.?AFM614 Fall Risk?Screening: One fall with injury in the past year.?# 155 - Falls Plan of Care?Plan of Care:?Documented,?Type of fall plan of care:?Balance, strength and gait training or instruction provided.? * Follow Up: p rn Forms: * Images: * Electronic signature of Bertin Gomez MD on 03/24/2025 at 01:09 PM ESTSign off status: Pending * Provider: Jarek Gomez MD Date: 05/18/2024 Generated for Printing/Faxing/eTransmitting on:?03/24/2025 01:09 PM EST History and Physical Notes * HPI (History of Present Illness) CategorySub-CategoryDetailNotesCategory NotesHPIPatient comes in today for follow-up of the left wrist fracture. She is currently out of splint. She is about 8 to 10 weeks post injury. Examination CategorySub-CategoryDetailNotesCategory NotesGeneral examination Patient is an age-appropriate 70-year-old female. Patient is in no acute distress and is alert and oriented x 3. Patient is appropriately dressed and appears to be well nourished. Patient is out of the splint. She has some obvious radial deviation and has about 10 degrees to 15 degrees of palmar flexion of her wrist. Circulation and sensation of fingers appear to be intact. X-ray Imaging Studies3 view x-ray of the left wrist was obtained in the office. Patient has lost some of the radial height. She has some dorsal angulation. Fracture appears to be healing well.
--- OUTSIDE RECORDS SUMMARY | 2025-03-24 13:08 | XMS_ITS | Clinical Summary ---
Author Organization [employer] [facility] tem Address [facility] [id number] [address] [place] [address] Care Team Providers Care Basketball Assembler Name Role Phone Kamaljit Lopez MD Primary Care Provider [phone] Allergies Active AllergyReactionsCriticalityNoted TuhbPnrvnxtvAlwovfqmbhu65/16/2018 Full body rash Medications MedicationSigDispense QuantityRefillsLast FilledStart DateEnd DateStatus ALPRAZolam (XANAX) 0.25 mg tablet Take 0.25 mg by mouth 3 (three) times a day as needed for anxiety or sleep. Active atorvastatin (LIPITOR) 10 mg tablet Take 10 mg by mouth daily.Active carvedilol (COREG) 25 mg tablet Take 25 mg by mouth 2 (two) times a day with meals.Active cloNIDine (CATAPRES) 0.1 mg tablet Take 0.1 mg by mouth 3 (three) times a day.Active losartan (COZAAR) 25 mg tablet Take 100 mg by mouth daily.Active sulindac (CLINORIL) 150 mg tablet Take 150 mg by mouth 2 (two) times a day.Active tiZANidine (ZANAFLEX) 4 mg tablet Take 8 mg by mouth once daily at bedtime.Active traMADol (ULTRAM) 50 mg tablet Take 50 mg by mouth every 6 (six) hours as needed for pain.Active Active Problems ProblemNoted DateDiagnosed DateChronic bilateral low back pain without sciatica 11/25/20177779Blqksuijgdza00/16/2018Essential snrbirabeutp22/16/2018Anxiety 11/20/20173417Gzenlvxoqplwhojnhgox33/16/2018Acute /16/2018Acute calculous huehxmwdymrzt90/16/2018 Immunizations No known immunizations Social History Tobacco UseTypesPacks/DayYears UsedDateSmoking Tobacco: NeverSmokeless Tobacco: NeverAlcohol UseStandard Drinks/WeekCommentsNo0 (1 standard drink = 0.6 oz pure alcohol)ChildcareAnswerDate EhjbjbzaKusjoenwmUmvuwfn07/13/2019EmploymentAnswer Date BuqqgihjVcspqeybqxXwtaxse52/13/2019Purpose - LifeAnswerDate RecordedPurpose and direction in qsqdAjranhi78/11/2021CommentsUnknownSex and Gender InformationValueDate RecordedSex Assigned at BirthNot on fileLegal SexFemale 08/25/2017 1:40 PM EDTGender IdentityNot on fileSexual OrientationNot on file Last Filed Vital Signs Vital SignReadingTime TakenCommentsBlood Jyaavpqb643/7412/04/2017 10:37 AM EDT Hpspn335811/25/2017 11:55 AM JCOJpxbqfirypt05.9 ??C (98.4 ??F)11/25/2017 11:55 AM EDTRespiratory Kzky862011/25/2017 11:55 AM EDTOxygen Cgpywnqxfv99%11/25/2017 11:55 AM EDTInhaled Oxygen Concentration--Gdqbkw22.8 kg (187 lb)12/04/2017 10:37 AM IFGXksdzf726.1 cm (5' 5 )11/20/2017 1:26 PM EDTBody Mass Index31.1208 1:26 PM EDT Plan of Treatment Health MaintenanceDue DateLast DoneCommentsDepression Enzcgekxg97/19/1968Tobacco Zigbrmqwu69/19/1968Adult BMI Drembfern27/19/1974DTaP,Tdap and Td Vaccines (1 - Tdap)02/23/1975Zoster (Shingles) Vaccine (1 of 2)02/23/2006Fall Risk Screening 02/23/2021Influenza Zxunvld3912/06/2024RSV ( or age 60+ yrs) (1 - 1-dose 75+ series)02/23/2031 Goals GoalPatient Goal TypeAssociated ProblemsRecent ProgressPatient-Stated?Author <enter goal here> Mary Ann Hedrick, RN Note: Evaluation of progress towards goal: Home self care with her sisters support Medical Devices Not on file Insurance Advance Directives * Full Code (Latest Code Status on File) Date ActivatedDate InactivatedComments11/20/2017 12:43 AM11/25/2017 4:23 PM Care Teams Team MemberRelationshipSpecialtyStart DateEnd Date Kamaljit Lopez MD PCP - General08/25/17
--- OUTSIDE RECORDS SUMMARY | 2025-03-24 13:08 | XMS_ITS | Clinical Summary ---
Author Organization [facility] Address [address] [place] [address] Care Team Providers Care Mechanical Engineering Technologist Name Role Phone Unavailable Primary Care Provider Unavailabl e Social History Tobacco UseTypesPacks/DayYears UsedDateSmoking Tobacco: Never AssessedUT Safety & EnvironmentAnswerDate RecordedFear of Current or Ex-PartnerNot on file 05/29/2023Emotionally AbusedNot on file05/29/2023hysically AbusedNot on file 05/29/2023Sexually AbusedNot on file05/29/2023hysically or Sexually AbusedNot on file05/29/2023CommentsUnknownSex and Gender InformationValueDate RecordedSex Assigned at BirthNot on fileLegal WzqGhfhwx32/29/2022 10:12 PM EDT Gender IdentityNot on fileSexual OrientationNot on file Plan of Treatment Not on file
--- OUTSIDE RECORDS SUMMARY | 2025-03-24 13:09 | XMS_ITS | Patient Health Record ---
Author Organization [facility] in [place] Address [address] [place] [address] Care Team Providers Care Theater Manager Name Role Phone Dereje Lopez Primary Care Provider [phone] Michaela Cook [phone] Allergies Allergen (clinical drug ingredient) Drug/Non Drug Allergy documented on EMR Reaction Allergy Type Onset Date Status sulfamethoxazole / trimethoprim Bactrim rash Drug Allergy ActivecephalexinCephalexindiarrheaDrug AllergyActive Reason For Referral Diagnosis 1 Laceration of leg (S 81.365I) Referral Organization [facility] Referring Provider First Name Dereje Referring Provider Last Name John [facility]erring Provider [facility] Specialty Wound Care Referral Priority Routine Medications Medication SIG (Take, Route, Frequency, Duration) Notes Start Date End Date Status Doxycycline Monohydrate 100 MG 1 tablet Orally b id; Duration: 10 days 5ActiveAtorvastatin Calcium 10 MGTake 1 tablet by mouth once daily; Duration: 90ActiveIrbesartan 300 MGTake 1 tablet by mouth once daily; Duration: 90ActivetiZANidine HCl 4 MGTAKE 2 TABLETS BY MOUTH EVERY DAY AT BEDTIME; Duration: 30ActiveRollator -Use rollator to safely ambulate daily; Duration: 365 days3ActiveMupirocin 2 %1 application Externally Twice a day; Duration: 4ActiveamLODIPine Besylate 10 MGTAKE 1 TABLET BY MOUTH EVERY DAY FOR 30 DAYS; Duration: 90ActiveMeloxicam 15 MG1 tablet Orally Once a day; Duration: 30 days5ActivehydrALAZINE HCl 50 MGTAKE 2 TABLETS BY MOUTH 4 TIMES DAILY; Duration: 30ActiveCymbalta 30 MG1 capsule Orally Once a day; Duration: 30 day(s)4ActiveClindamycin Phosphate 1 %1 application Externally Once a day5ActiveClaritin 10 MG1 tablet Orally Once a dayActiveCarvedilol 25 MGTAKE 1 TABLET BY MOUTH THREE TIMES DAILY; Duration: 90 daysActiveBuprenorphine 20 MCG/HRAPPLY 1 PATCH TO SKIN ONCE A WEEK; Duration: tivetraMADol HCl 50 MGTAKE 2 TABLETS BY MOUTH THREE TIMES DAILY NEEDED; Duration: 30 5ActiveHYDROcodone-Acetaminophen 5-325 MG1/2 - 1 tablet as needed Orally QHS; Duration: 30 days5ActiveCiprofloxacin HCl 500 MG1 tablet Orally every 12 hrs; Duration: 10 days5Active Immunizations Vaccine Route Administration Date Status Comme nts Tdap (Adacel) IM Intramuscular 09/01/2024 Administered Social History Tobacco Use: Social History Observation Description Date Details (start date - stop date) Never Smoker NA - NA Tobacco Use/Smoking Question Answer Notes Patient is a nonsmoker Alcohol Screen (Audit-C) Question Answer Notes Did you have a drink containing alcohol in the p ast year? No Skequo8QuoelvplwfvshpTwplojwcXJKBE-Q (Standard) Question Answer Notes Did you have a drink containing alcohol in the p ast year? No Ucpdqs2AmxetfyshrjwzmMcaresnf Problems Problem Type SNOMED Code ICD Code Onset Dates Problem Status W/U Status Risk Notes Problem Iron deficiency anemia (12836814) Other i deondre deficiency anemias (D50.8) ActiveconfirmedProblemVitamin D deficiency (56837118)Vitamin D deficiency, unspecified (E55.9)ActiveconfirmedProblemMorbid obesity (disorder) (564657348) Morbid (severe) obesity due to excess calories (E66.01)ActiveconfirmedProblem Mixed hyperlipidemia (265347944)Mixed hyperlipidemia (E78.2)Activeconfirmed ProblemNon-pressure chronic ulcer of other part of left lower leg with fat layer exposed (L97.822)ActiveconfirmedProblemBackache (302463107)Other dorsalgia (M54.89)ActiveconfirmedProblemAbnormal glucose level (437861165)Other abnormal glucose (R73.09)ActiveconfirmedProblemThyroid function tests abnormal (438951445)Abnormal results of thyroid function studies (R94.6)Activeconfirmed ProblemStrain of muscle of left upper arm (01550709032305627)Strain of other muscles, fascia and tendons at shoulder and upper arm level, left arm, initial encounter (S46.812A)ActiveconfirmedProblemHypertension (88002241)Hypertension (I10)ActiveconfirmedProblemOsteoarthritis of knee (159120649)Knee osteoarthritis (M17.9)ActiveconfirmedProblemNeuropathy (287708917)Neuropathy (G62.9)Active confirmedProblemCellulitis (788758778)Cellulitis (L03.90)ActiveconfirmedProblem Acute sinusitis (93093332)Acute sinus infection (J01.90)ActiveconfirmedProblem Sacral contusion (S30.0XXA)ActiveconfirmedProblemChronic painful diabetic neuropathy (077687557)Chronic painful diabetic neuropathy (E11.40)Active confirmedProblemhypercholesterolemia (disorder) (70266573)Hypercholesteremia (E78.00)ActiveconfirmedProblemClosed fracture of carpal bone (6823916)Fracture of wrist, left, closed, initial encounter (S62.102A)ActiveconfirmedProblem Chronic venous hypertension with ulcer involving left side (I87.312)Active confirmedProblemDecreased estrogen level (842145135)Decreased estrogen level (E28.39)ActiveconfirmedProblemLow back pain (finding) (898630938)Low back pain at multiple sites (M54.50)Activeconfirmed Vital Signs Blood pressure diastolic 94 mm Hg 11/11/2024 Jowpjh09.5 in11/11/2024lood pressure akhgwtbt101 mm Hg11/11/20247459Aybjhv484.6 lbs 11/11/2024BMI32.45 kg/m211/11/2024 Encounters Encounter Location Date Provider Diagnosis [facility] [address] [place] [address] 06/29/2024 Dereje Hoy Acute non-recurrent sinusitis, unspecified location J01.90 and Nasal congestion R09.81 [facility] [address] [facility] [place] [place] [address] 09/01/2024 Dereje Hoy Cellulitis L03.90 an d Laceration of leg S81.819A [facility] [address] [place] [address] 11/11/2024 Dereje Hoy Morbid (severe) obes ity due to excess calories E66.01 and Non-pressure chronic ulcer of other part of left lower leg with fat layer exposed L97.822 [facility] [address] [place] [address] 04/06/2024 Dereje Hoy [facility] [place] [address] 05/10/2024Doug HoyHypertension I10[facility] [facility] [place] [address]/10/2024[facility] [place] [address]/07/2024Doug [facility] [place] [address]/08/2024Doug Hoy Hypertension M75PsxbfpdAd[facility]health [facility] [place] [address]/Doug HoyBVP[facility]ers [facility] [facility] [place] [address]/Doug HoyAcute non-recurrent sinusitis, unspecified location J01.90[facility] [place] [address]/01/2025Doug HoyNasal congestion R09.81[facility] [place] [address]/Doug HoyAcute non- recurrent sinusitis, unspecified location J01.90[facility] [address] [facility] [place] [address]/04/2024Doug HoyAcute non-recurrent sinusitis, unspecified location J01.90[facility] [facility] [place] [address]/10/2024Doug HoyHypertension N72AspsmwcAdventhealth [facility] [facility] [place] [address]/ Dereje HoyCellulitis L03.90[facility] [facility] [place] [address]/Doug HoyCellulitis L03.90[facility] [facility] [place] [address]/Doug HoyCellulitis L03.90[facility] [place] [address]/Doug [facility]oyBMiddle [facility] [place] [address]/01/2025Doug HoyHypertension Y75ZzlqgniAdventhealth [facility] [facility] [place] [address]/Doug HoyCellulitis L03.90[facility] [facility] [place] [address] 11/11/2024Doug HoyHypertension S86XsnnwcvAdventhealth [facility] [facility] [place] [address]/10/2024Doug HoyLaceration of leg S81.819AAdventhealth Castle Rock[address] [facility] [place] [address]/ Dereje HoyCellulitis L03.90[facility] [place] [address]/Doug HoyCellulitis L03.90[facility] [place] [address]/Doug [facility] [place] [address]/02/2025 Dereje HoyHypertension V52KwrfwnlAdventhealth [facility] Rock[address] [place] [address]/Doug HoyCellulitis L03.90[facility] [place] [address]/09/2024Doug HoAd[facility] [place] [address]/09/2024 Dereje [facility] [place] [address] 01/19/2025Doug HoyCellulitis L03.90[facility] [place] [address]/Pamela CramerCellulitis L03.90[facility] [place] [address]/06/2024 Dereje HoyHypercholesteremia E78.00 ; Other iron deficiency anemias D50.8 ; Other abnormal glucose R73.09 ; Vitamin D deficiency, unspecified E55.9 ; Abnormal results of thyroid function studies R94.6 and Screening for colon cancer Z12.11 [facility] [place] [address] 02/14/2025Doug HoyHypertension M72QiexegbAdventhealth [facility] [place] [address]/Doug HoyCellulitis L03.90[facility] [place] [address]/Doug Hoy Cellulitis L03.90[facility] [place] [address]/Doug HoyDecreased estrogen level E28.39[facility] [facility] [place] [address]/18/2025Doug Hoy Cellulitis L03.90 Assessments Encounter Date Diagnosis (ICD Code) Assessment Notes Treatment Notes Treatment Clinical Notes Section Notes 05/10/2024 Hypertension (ICD-10 - I10) 06/09/2024Hypertension (ICD-10 - I10)5Acute non-recurrent sinusitis, unspecified location (ICD-10 - J01.90)07/15/2024Nasal congestion (ICD-10 - R09.81)5Acute non-recurrent sinusitis, unspecified location (ICD-10 - J01.90)5Acute non-recurrent sinusitis, unspecified location (ICD-10 - J01.90)08/11/2024Hypertension (ICD-10 - I10)5Cellulitis (ICD-10 - L03.90)5Cellulitis (ICD-10 - L03.90)5Cellulitis (ICD-10 - L03.90)10/14/2024Hypertension (ICD-10 - I10)5Cellulitis (ICD-10 - L03.90)11/11/2024Hypertension (ICD-10 - I10)11/11/2024Laceration of leg (ICD-10 - S81.819A)5Cellulitis (ICD-10 - L03.90)5Cellulitis (ICD-10 - L03.90)12/16/2024Hypertension (ICD-10 - I10)5Cellulitis (ICD-10 - L03.90)5Cellulitis (ICD-10 - L03.90)5Cellulitis (ICD-10 - L03.90)02/07/2025Hypercholesteremia (ICD-10 - E78.00)02/07/2025Other iron deficiency anemias (ICD-10 - D50.8)09/01/2024ellulitis (ICD-10 - L03.90) 09/01/2024Laceration of leg (ICD-10 - S81.819A)11/11/2024Morbid (severe) obesity due to excess calories (ICD-10 - E66.01)disucsse diet and exercis - pt understands plan11/11/2024Non-pressure chronic ulcer of other part of left lower leg with fat layer exposed (ICD-10 - L97.822)02/14/2025Hypertension (ICD-10 - I10)02/18/2025ellulitis (ICD-10 - L03.90)02/22/2025ellulitis (ICD-10 - L03.90) 02/23/2025Decreased estrogen level (ICD-10 - E28.39)03/24/2025ellulitis (ICD-10 - L03.90)06/29/2024ute non-recurrent sinusitis, unspecified location (ICD-10 - J01.90)Rest and drink more liquids, especially water. You may use a humidifier or vaporizer to help keep the drainage moist. Rvdx-pzt-gxidoax Nasal Saline may help the stuffy and runny nose. Use Ibuprofen and or Tylenol as needed for fever, chills, body aches or pain. Children 5 years old should not be given nudf-gvw-thfctui cough and cold medications such as guaifenesin and dextromethorphan. If you're over age 5, you may try obae-vji-esjpckj cold medications such as guaifenesin and dextromethorphan, or multi-symptom cold reliever such as Dayquil to help reduce the symptoms. Antibiotics have been pre scribed. You should take these until completed and follow the directions. Antibiotics can sometimescause upset stomach, and in rare cases, serious allergic reactions or serious gastrointestinal problems. If you start having severe abdominal pain, severe vomiting, or bloody diarrhea, you should be r eevaluated by your physician or urgent care immediately. Follow up with your Primary Care Provider or return to clinic if symptoms do not improve within 3-5 days06/29/2024Nasal congestion (ICD-10 - R09.81)02/07/2025Other abnormal glucose (ICD-10 - R73.09)02/07/2025Vitamin D deficiency, unspecified (ICD-10 - E55.9) 02/07/2025bnormal results of thyroid function studies (ICD-10 - R94.6) 02/07/2025Screening for colon cancer (ICD-10 - Z12.11) Plan Of Treatment Pending Test Test Name Order Date CMP (COMPLETE METABOLIC PANEL) 3 CMP (COMPLETE METABOLIC PANEL) 4 HEMOGLOBIN A1C (GLYCO) 10/23/2022 HEMOGLOBIN A1C (GLYCO) 01/02/2024 IRON, TOTAL 01/02/2024 IRON, TOTAL 10/23/2022 LIPID PANEL (CHOL/TRIG/HDL/LDL) 10/24/19 23 LIPID PANEL (CHOL/TRIG/HDL/LDL) 01/02/20 24 CBC WITH DIFF (EXP 02/2025) 01/02/2024 CBC WITH DIFF (EXP 02/2025) 10/23/2022 VITAMIN D, 25 LEVEL (TOTAL) 10/23/2022 VITAMIN D, 25 LEVEL (TOTAL) 01/02/2024 MAMM Mammograms CAD 10/23/2022 MRI Shoulder LT w/o contrast 01/20/2023 NUC MED Thyroid Uptake and Scan* 023 T3 FREE, T4 FREE and TSH 11/15/2022 FECAL OCCULT BLOOD 02/07/2025 Dressing Change- performed 03/18/2024 Insulin Level 10/23/2022 Insulin Level 01/02/2024 STOOL OCCULT BLOOD 01/02/2024 STOOL OCCULT BLOOD 10/23/2022 CT Pelvis w/o Contrast 07/06/2023 CBC AUTO DIFF 02/07/2025 GLYCOHEMOGLOBIN A1C 11/14/2022 GLYCOHEMOGLOBIN A1C 11/14/2022 GLYCOHEMOGLOBIN A1C 02/07/2025 IRON 11/14/2022 IRON 11/14/2022 LIPID PROFILE 02/07/2025 PROF 14(COMP METB) 02/07/2025 THYROID ANTIBODIES 11/15/2022 THYROID PEROXIDASE AB 12/04/2022 THYROID PEROXIDASE AB 12/04/2022 VITAMIN D 25 OH 11/14/2022 VITAMIN D 25 OH 11/14/2022 XR DEXA BONE DENSITY 02/23/2025 XR SHOULDER LT 2V or > 01/15/2023 THYROID PANEL (T4/TSH/FREE T3) 3 THYROID PANEL (T4/TSH/FREE T3) 4 THYROID PANEL (T4/TSH/FREE T3) 5 Next Appt Details Provider Name:Dereje Lopez, 01:30:00 PM, [address] [place], [address], Insurance Providers Payer Name Payer Address Payer Phone Subscriber Number Group Number Insured Name Patient Relationship to Insured Coverage Start Date Coverage End Date [employer] [address] [place], [place] [id number] Clari Rosen - patient is the [id number] 2021 Medications Administered Medication Instructions Date of Administration Dosage Notes Kenalog-40 mg80 mgKetorolac Kjulrabootwl71/06/152714 vm41Gavrsutrz Kapwbjxyorkp37/25/455765 mgTriamcinolone 40 mg/ml20 mg Medical (General) History Medical History History ICD Code Low vitamin D level E55.9 COVID U07.1 Arthritis M19.90 Bowel perforation K63.1 Diverticulitis of large intestine with a bscess with bleeding K57.21 Degeneration of cervical intervertebral disc M50.30 Osteoporosis M81.0 HTN (hypertension), malignant I10 Bronchial adenoma D38.1 Surgical History Surgery Date(Month/Year) Left eye lens implant [address] Gomez 023 right knee replacement bowel gokxpmlyz2125amzxostrsseisca removedHospitalization History Reason Date(Month/Year) diverticulitis 2018
--- OUTSIDE RECORDS SUMMARY | 2025-03-24 13:09 | XMS_ITS | Clinical Summary ---
Author Organization [facility] Address [address] [place] [address] Care Team Providers Care Medical Office Representative Name Role Phone Unavailable Primary Care Provider Unavailabl e Social History Tobacco UseTypesPacks/DayYears UsedDateSmoking Tobacco: Never Assessed CommentsUnknownSex and Gender InformationValueDate RecordedSex Assigned at Not on fileLegal RcdIsdomv27/15/2023 8:21 PM EDTGender IdentityNot on fileSexual OrientationNot on file Last Filed Vital Signs Vital SignReadingTime TakenCommentsBlood Domgsghv774/9612 12:00 PM EST Pulse--Temperature--Respiratory Rate--Oxygen Saturation--Inhaled Oxygen Concentration--Gbtvma18.5 kg (193 lb)04/28/2018 12:00 PM LSMCkkxtb981.5 cm (5' 2 )04/28/2018 12:00 PM ESTBody Mass Index35. 12:00 PM EST Plan of Treatment Not on file
--- OUTSIDE RECORDS SUMMARY | 2025-03-24 13:10 | XMS_ITS | Patient Health Record ---
Author Organization [facility] Address [address] [place] [address] Care Team Providers Care Human Resources Officer Name Role Phone Kamaljit Lopez Primary Care Provider Bertin Cheek Unavailable [phone] Allergies Allergen (clinical drug ingredient) Drug/Non Drug [...] 1st meal of the day ORAL LINZESS Aqn-XkythtZwpWSBYAHPLIUJFMUod-XhabicCdaHMUdjh Hydrochloride 0.1 mgtake 1 tablet by oral route 2 times every day ORALCLONIDINE HCLNot-TakingLosartan Potassium 100 mgtake 1 tablet by oral route every day ORALLOSARTAN POTASSIUMNot-Taking Diclofenac Sodium sodium 75 mgtake 1 tablet by oral route 2 times every day ORAL DICLOFENAC SODIUMActivecarvedilol 25 mgtake 1 tablet by oral route 2 times every day with food ORALCARVEDILOLActiveAtorvastatin Calcium 10 mgtake 1 tablet by oral route every day ORALATORVASTATIN CALCIUMActiveTraMADol Hydrochloride 50 mg take 1 tablet by oral route every 12 hours as needed ORALTRAMADOL HCLActive Acetaminophen-Hydrocodone Bitartrate 325 mg-5 mg1-2 tab(s) PRN PAIN ORAL every 6 hours; Duration: 7 daysHYDROCODONE-YGVLQQVEKVRLU11/08/2023Active Social History Tobacco Use: Social History Observation Description Date Details (start date - stop date) Never Smoker NA - NA AUDIT-C (Standard) Question Answer Notes Did you have a drink containing alcohol in the p ast year? No Lclncu0PbkbktsjtmvpplIkqyljeqLnhrhvq Control (Standard) Question Answer Notes Tobacco use: Nonsmoker Problems Problem Type SNOMED Code ICD Code Onset Dates Problem Status W/U Status Risk Notes Problem History of musculosk eletal operation (079964748) Aftercare following joint replacement surgery (Z47.1) ActiveconfirmedProblemOsteoarthritis of knee (711559166)Primary osteoarthritis of left knee (M17.12)ActiveconfirmedProblemClosed fracture of distal end of left radius (disorder) (40284533724969807)Other extraarticular fracture of lower end of left radius, initial encounter for closed fracture (S52.552A)Activeconfirmed ProblemArtificial knee joint present (452378927918)Presence of left artificial knee joint (Z96.652)ActiveconfirmedProblemClosed fracture of distal end of left radius (21785648663378385)Other closed fracture of distal end of left radius, initial encounter (S52.592A)ActiveconfirmedProblemClosed fracture of left wrist (45169738863741241)Closed fracture of left wrist, initial encounter (S62.102A) Activeconfirmed Vital Signs Height 5FT 1IN in 03/17/2025 Xqzdfa637 lbs105/18/2024BMI33.0603/17/2025 Encounters Encounter Location Date Provider Diagnosis [facility] [facility] [address] [place] [address] 02/22/2025 Bertin Gomez Other extraarticular fracture of lower end of left radius, initial encounter for closed fracture S52.552A [facility] [facility] [address] [place] [address] 03/17/2025 Bertin Gomez Closed fracture of l eft wrist with routine healing, subsequent encounter S62.102D [place] [address] [address] 01/11/2025 Bertin Gomez Closed fracture of l eft wrist, initial encounter S62.102A and Other closed fracture of distal end of left radius, initial encounter S52.592A [facility] [place] [place] [address] 01/25/2025 Bertin Gomez Closed fracture of l eft wrist with routine healing, subsequent encounter S62.102D ; Other closed fracture of distal end of left radius with routine healing, subsequent encounter S52.592D and Acute pain of right knee M25.561 Assessments Encounter Date Diagnosis (ICD Code) Assessment Notes Treatment Notes Treatment Clinical Notes Section Notes 01/11/2025 Other closed fractur e of distal end of left radius, initial encounter (ICD-10 - S52.592A) Transverse nondisplaced distal radius fracture extra-articular with impaction 01/11/2025losed fracture of left wrist, initial encounter (ICD-10 - S62.102A) Transverse nondisplaced distal radius fracture extra-articular with impaction 01/25/2025Other closed fracture of distal end of left radius with routine healing, subsequent encounter (ICD-10 - S52.592D) Extra-articular fracture left distal radius Left total knee replacement 01/25/2025losed fracture of left wrist with routine healing, subsequent encounter (ICD-10 - S62.102D) Extra-articular fracture left distal radius Left total knee replacement 02/22/2025Other extraarticular fracture of lower end of left radius, initial encounter for closed fracture (ICD-10 - S52.552A)Extra-articular fracture left distal usfiri6703/17/2025losed fracture of left wrist with routine healing, subsequent encounter (ICD-10 - S62.102D)Extra-articular fracture left distal wbyrwd6401/25/2025ute pain of right knee (ICD-10 - M25.561) Extra-articular fracture left distal radius Left total knee replacement 02/22/2025OtherFindings were discussed with the patient. She is given a wrist cock up brace to use as needed. We offered her physical therapy which she declined. Will see her back in the office in 3 to 4 weeks witha repeat x-ray of the wrist.Extra-articular fracture left distal lznkch7403/17/2025OtherFindings were discussed with the patient. She is going to resume activities as tolerated. Will in the office as needed.Extra-articular fracture left distal radius 01/11/2025OtherFindings were discussed with the patient. Will see her back in the office in 2 weeks with a repeat x-ray in the cast.Transverse nondisplaced distal radius fracture extra-articular with aeeezasly15/21/2025Other Findings were discussed with the patient. She was told that she appears to be getting some collapseat her wrist fracture site. We talked about the consequences of this. She was offered an ORIF of her left wrist which she has declined. Patient is got good range of motion of her left knee. Plan is to continue to treat the left total knee placement conservatively. Plans to see the patient back in the office in 1 month for cast removal left wrist and repeat x-ray. Extra-articular fracture left distal radius Left total knee replacement Plan Of Treatment Pending Test Test Name Order Date [facility] PREOP- CBC WITH DIFF, BM P, TYPE AND SCREEN, MRSA BY PCR BILATERAL NARES, TOTAL JOINT CL[facility]:PT / OT EVALUATION , EKG 11/14/2022 [facility] Knee, Left 4v -[id number] 11/14/2022 [facility] Knee right 2v-74721 01/25/2025 [facility] WRIST LEFT 3V-58151 01/25/2025 [facility] WRIST LEFT 3V-75624 02/22/2025 [facility] WRIST LEFT 3V-[id number] 03/17/2025 Insurance Providers Payer Name Payer Address Payer Phone Subscriber Number Group Number Insured Name Patient Relationship to Insured Coverage Start Date Coverage End Date [facility] [address] [place] [address] [id number] Brianna PATEL - patient is the insured Medical (General) History Medical History History ICD Code Respiratory problems: Yes High Blood Pressure: YesAnxiety: YesDrug Allergies: YesSurgical History Surgery Date(Month/Year) Left total knee arthroplasty 01/2023 Cholecystectomy 2018 Rt knee replacement 2007 Lung 2004 Hospitalization History Reason Date(Month/Year) Diverticulosis
--- OUTSIDE RECORDS SUMMARY | 2025-03-24 13:10 | XMS_ITS | Clinical Summary ---
Author Organization [facility] Address [address], [address] [place] [address] Care Team Providers Care Roll Forming Machine Operator Name Role Phone Kamaljit Lopez MD Primary Care Provider [phone] Allergies Active AllergyReactionsCriticalityNoted DateComments Sulfamethoxazole-TrimethoprimNausea Only11/19/20173050NshtqnqkarKfwmzdhs62/29/2025 Clindamycin/IgmdrjrxidQidrwqbq89/05/1829Obbaddc56/04/2019LisinoprilHigh 01/08/20196532FlddneryvwhVtvcuEorwhy29/15/4749GrzhphOcggMdf60/05/2025 Medications MedicationSigDispense QuantityRefillsLast FilledStart DateEnd DateStatus carvedilol (COREG) 25 MG tablet Take 1 tablet by mouth 3 times dailyActive atorvastatin (LIPITOR) 10 MG tablet Take 1 tablet by mouth nightlyActive loratadine (CLARITIN) 10 MG capsule Take 1 capsule by mouth nightlyActive acetaminophen (TYLENOL) 500 MG tablet Take 2 tablets by mouth every 8 hours for 7 days 42 tablet 01/04/2019Active diclofenac (VOLTAREN) 75 MG EC tablet Take 1 tablet by mouth 2 times dailyActive irbesartan (AVAPRO) 300 MG tablet 05/07/2021ctive traMADol (ULTRAM) 50 MG tablet Take 2 tablets by mouth 3 times daily.06/11/2021ctive vitamin D3 (CHOLECALCIFEROL) 10 MCG (400 UNIT) TABS tablet Take 1 tablet by mouth dailyActive IRON, FERROUS SULFATE, PO Take 1 tablet by mouth dailyActive buprenorphine 20 MCG/HR PTWK Place 1 patch onto the skin once a week. Dignmx7312/19/2022ctive naloxone 4 MG/0.1ML LIQD nasal spray 1 spray by Nasal route as needed for Opioid Reversal 1 each ctive Additional Information Patient not taking.Informant: Self, Reported on 01/07/2025 hydrALAZINE (APRESOLINE) 50 MG tablet Take 2 tablets by mouth 3 times daily Hold if SBP is less than 130 90 tablet ctive HYDROcodone-acetaminophen (NORCO) 5-325 MG per tablet Take 0.5 tablets by mouth every 6 hours as needed.5Active Active Problems ProblemNoted DateDiagnosed DateNon-pressure chronic ulcer of left calf with fat layer jiabxdw2009/23/2024Open wound of left lower ndlojrgnq06/05/2025ellulitis of leg without foot, left04/06/2024Laceration of left lower vvnqfqxeq56/31/2024 Ulcer of left pretibial region with fat layer kzjlpps7704/06/2024S/P total knee replacement using cement, left02/03/20235375Rcmkfkcmkrtw04/30/2023ESBL (extended spectrum beta-lactamase) producing bacteria ppmgyvqyl11/28/2019Mild malnutrition 01/30/2019SIRS (systemic inflammatory response syndrome)01/29/2019Feculent Iyidswtnvzz83/28/2019Sigmoid bjdogmbigghhew01/28/2019Obesity (BMI 30.0-34.9) 01/02/2019Bowel ysuohsuqlcb66/23/2019 Resolved Problems ProblemNoted DateDiagnosed DateResolved DatePosterior subcapsular age-related cataract of left eye/UTI (urinary tract infection)01/29/2019 02/28/2019Acute respiratory aiosfis75Gallstone pancreatitis Acute xzsnzajimnchn76Dilated intrahepatic bile ductCalculus of gallbladder with acute cholecystitis and uehrgbpzgru71 Encounters DateTypeDepartmentCare GzmaDvqqawhdwiv85/03/2025 5:18 PM EDT - 01/07/2025 9:00 PM EDTEmergencorazon [facility] [address] [place] [id number] Closed fracture of distal end of left radius, unspecified fracture morphology, initial encounter (Primary Dx) Discharge Disposition: Home or Self Care01/07/2025Travelfrom Last 3 Months Immunizations ImmunizationAdministration DatesNext DueInfluenza Virus Uwultso0801/05/2019 Family History Medical HistoryRelationNameCommentsBreast CancerMotherRelationNameStatusComments FatherDeceasedMotherAlive Social History Tobacco UseTypesPacks/DayYears UsedDateSmoking Tobacco: NeverSmokeless Tobacco: Never Tobacco Cessation:Counseling Given: Not Answered Alcohol UseStandard Drinks/WeekCommentsNot Currently0 (1 standard drink = 0.6 oz pure alcohol)AUDIT-CAnswerDate RecordedQ1: How often do you have a drink containing alcohol?Never01/07/2025Q2: How many drinks containing alcohol do you have on a typical day when you are drinking?Patient does not drink01/07/2025Q3: How often do you have six or more drinks on one occasion?Never01/07/2025 Interpersonal Safety Domain Source: IP Abuse ScreeningAnswerDate Recorded Physical iyootFxzetm46/03/2025Verbal eiftkGcrbiz47/03/2025Emotional abuseDenies 01/07/2025Financial opkhyZxegbp42/03/2025Sexual fgftcTgqudp25/03/2025 CommentsNoSex and Gender InformationValueDate RecordedSex Assigned at BirthNot on fileLegal VivVvcolm83/10/2013 8:45 PM ESTGender IdentityNot on fileSexual OrientationNot on file Last Filed Vital Signs Vital SignReadingTime TakenCommentsBlood Ljgvhfnt115/8401/07/2025 8:36 PM EDT Lgszj460801/07/2025 5:26 PM KDYLaibqcdphih58 ??C (98.6 ??F)01/07/2025 5:26 PM EDT Respiratory Afbo5579 5:26 PM EDTOxygen Qjnclkmluw99%01/07/2025 8:36 PM EDTInhaled Oxygen Concentration--Ucuqen25.1 kg (170 lb)01/07/2025 5:26 PM EDT Sgnpzs130.9 cm (5' 1 )01/07/2025 5:26 PM EDTBody Mass Index32.1210/06/2024 5:26 PM EDT Plan of Treatment DateTypeDepartmentCare Team (Latest Contact Info)Sbzuvylnnzc05/15/2026 11:00 AM ESTAppointment [facility] [address] [place] [address] S/R, scheduled with ptHealth MaintenanceDue DateLast DoneCommentsDepression Huywqb1402/24/1968Hepatitis C ajsdtq1302/23/1974Fecal-DNA (Cologuard): Average risk 02/23/2001Sigmoidoscopy/CT rnkkbadfiruh82/19/2001Pneumococcal 50+ years Vaccine (1 of 1 - PCV)02/23/2006Shingles vaccine (1 of 2)DEXA (modify frequency per FRAX score)02/23/2011Respiratory Syncytial Virus (RSV) or age 60 yrs+ (1 - Risk 60-74 years 1-dose series)2016FIT/FOBT: Average risk/7581Brvymh12/10/727377/01/2023, 05/22/2021, 10/31/2018Annual Wellness Visit (Medicare Advantage)04/07/2024Flu vaccine (#1) /11/2020, 01/26/2020, 01/18/2019, Additional history existsCOVID-19 Vaccine ( season)/, 08/12/2020, 07/20/2020reast cancer vxzfua29/04/2023, 12/26/2022, 06/09/2019Diabetes screen 8/01/2023, 05/22/2021, 10/31/20185779Wqgzcbwtupw56, 11/12/2019, 09/10/2019Colorectal Cancer Irqgco1311/11/2029DTaP/Tdap/Td vaccine (2 - Td or Tdap)/3677N4K test (Diabetic or Prediabetic)Discontinued 11/14/2022, 05/22/2021, 10/31/2018GFR test (Diabetes, CKD 3-4, OR last GFR 15-59)Ziwrcgvzhzvn16/03/2023, 11/14/2022, 05/22/2021, Additional history exists Hepatitis A vaccineAged OutNo longer eligible based on patient's age to complete this topicHepatitis B vaccineAged OutNo longer eligible based on patient's age to complete this topicHib vaccineAged OutNo longer eligible based on patient's age to complete this topicMeningococcal (ACWY) vaccineAged OutNo longer eligible based on patient's age to complete this topicMeningococcal B vaccineAged OutNo longer eligible based on patient's age to complete this topicPolio vaccineAged OutNo longer eligible based on patient's age to complete this topic Medical Devices ImplantedTypeAreaManufacturerDevice IdentifierShelf Expiration DateModel / Serial / LotDup Use [id number] Impl Knee Psn All Poly Pat Ply 29mm - [id number] Implanted:Qty: 1 [facility]03[facility] [employer]nee[employer] INC-[id number] / / [id number] Knee Psn Fem Cr Cmt Ccr Std Sz8 L - [id number] Implanted:Qty: 1 on 02/03/2023 [facility] [employer]-[id number] / / [id number] Bne 40gm Hi Visc Radpq For Rev Surg - [id number] Implanted:Qty: 1 on 02/03/2023 [facility] [employer]-[id number] / / [id number] Bne 40gm Hi Visc Radpq For Rev Surg - [id number] Implanted:Qty: 1 on 02/03/2023 [facility]: [employer]-[id number] / / [id number] Stem L30mm Iio52sl Knee Tapr Deangelo Persona - [id number] Implanted:Qty: 1 on 02/03/2023 [facility]: [employer]-[id number] / / [id number] Stem Sz E 5deg L Tibl Knee Deangelo Sylvia Tib Persona - [id number] Implanted:Qty: 1 on 02/03/2023 [facility] [employer]-[id number] / / [id number] Mc Ve Asf L 20mm 8-11 Ef - [id number] Implanted:Qty: 1 on 02/03/2023 [facility] [employer]-[id number] / / [id number] Intocu L12.5 Mm Od6 Mm +23.0 D Hydrophobic Envista - [id number] Implanted:Qty: 1 on 07/28/2023 by Guido Gerber DO at [facility]-WD03/06/[id number] / [id number] / ExplantedTypeAreaManufacturerDevice IdentifierShelf Expiration DateModel / Serial / LotScrew Bne L48mm Constrn Cndyl Knee Hex Hd Stem For Leg Nxgn - [id number] Explanted:Qty: 1 on 02/03/2023 [facility] [employer]-[id number] / / [id number] Bne L48mm Constrn Cndyl Knee Hex Hd Stem For Leg Nxgn - [id number] Explanted:Qty: 1 on 02/03/2023 [facility] [employer]-[id number] / / [id number] Procedures Procedure NamePriorityDate/TimeAssociated DiagnosisCommentsXR HUMERUS LEFT (MIN 2 VIEWS)STAT1 6:26 PM EDT XR WRIST LEFT (MIN 3 VIEWS)STAT1 6:26 PM EDT CRISSY LUDY DIGITAL SCREEN SELF REFERRAL W OR WO CAD RBUJJMUOYPjbaklk74/01/2024 3:49 PM EDT Visit for screening mammogram BASIC METABOLIC KFWUZDqfbfvz42/03/2023 1:06 PM EDT LIPID ZVXXQCvzwkyf78/10/2023 11:23 AM EDT HEMOGLOBIN B7NXzkqzjp77/10/2023 11:23 AM EDT OCCULT BLOOD BBAWAAPplxndo43/15/2022 4:08 PM EST COLONOSCOPY CYHAIZAFLOnguhji90/07/2020 12:53 PM EDT from Last 3 Months or Most Recently Relevant to Health Maintenance Results * XR HUMERUS LEFT (MIN 2 VIEWS) (01/07/2025 6:26 PM EDT)Anatomical Region LateralityModalityArm, Elbow, ShoulderComputed RadiographySpecimen (Source) Anatomical Location / LateralityCollection Method / VolumeCollection Time Received Time01/07/2025 8:28 PM EDT Impressions 01/07/2025 8:31 PM EDT 1. No acute fracture or dislocation. Narrative 01/07/2025 8:31 PM EDT EXAM: 2 VIEW(S) XRAY OF THE LEFT HUMERUS 01/07/2025 06:26:45 PM COMPARISON: None available. CLINICAL HISTORY: injury. ORDERING SYSTEM PROVIDED HISTORY: injury; TECHNOLOGIST PROVIDED HISTORY: injury FINDINGS: BONES AND JOINTS: No acute fracture. No focal osseous lesion. No joint dislocation. Elbow is not well evaluated on the lateral view. Osteoarthritic changes at the glenohumeral joint. SOFT TISSUES: The soft tissues are unremarkable. Procedure Note Marion Asher MD - 01/07/2025 EXAM: 2 VIEW(S) XRAY OF THE LEFT HUMERUS 01/07/2025 06:26:45 PM COMPARISON: None available. CLINICAL HISTORY: injury. ORDERING SYSTEM PROVIDED HISTORY: injury; TECHNOLOGIST PROVIDEDHISTORY: injury FINDINGS: BONES AND JOINTS: No acute fracture. No focal osseous lesion. No joint dislocation. Elbow isnot well evaluated on the lateral view. Osteoarthritic changes at theglenohumeral joint. SOFT TISSUES: The soft tissues are unremarkable. IMPRESSION: 1. No acute fracture or dislocation. Authorizing ProviderResult TypeResult StatusMarcimelba Hooks FIELD AUDITOR - CNPIMG DIAGNOSTIC IMAGING ORDERABLESFinal Result * XR WRIST LEFT (MIN 3 VIEWS) (01/07/2025 6:26 PM EDT)Anatomical Region LateralityModalityForearm, Wrist, HandComputed RadiographySpecimen (Source) Anatomical Location / LateralityCollection Method / VolumeCollection Time Received Time01/07/2025 8:25 PM EDT Impressions 01/07/2025 8:34 PM EDT 1. Transverse nondisplaced distal radial fracture with dorsal impaction and mild apex volar angulation with slight dorsal tilt of the articular surface of the radius. 2. Osteopenia and osteoarthritis with advanced degenerative changes at the 1st carpometacarpal joint and degenerative changes involving multiple interphalangeal joints which are worst and severe at the 3rd distal interphalangeal joint. Narrative 01/07/2025 8:34 PM EDT EXAMINATION: 3 XRAY VIEWS OF THE LEFT WRIST 01/07/2025 5:26 pm COMPARISON: None. HISTORY: ORDERING SYSTEM PROVIDED HISTORY: injury with deformity TECHNOLOGIST PROVIDED HISTORY: injury with deformity FINDINGS: The bones are osteopenic. ??There are advanced degenerative changes at the 1st carpometacarpal joint and degenerative changes involving multiple interphalangeal joints which are worst and severe at the 3rd distal interphalangeal joint. ??There is a transverse nondisplaced distal radial fracture with dorsal impaction and mild apex volar angulation with slight dorsal tilt of the articular surface of the radius. ??Elsewhere, no fracture or dislocation is identified. Procedure Note Hernandez Francis MD - 01/07/2025 EXAMINATION: 3 XRAY VIEWS OF THE LEFT WRIST 01/07/2025 5:26 pm COMPARISON: None. HISTORY: ORDERING SYSTEM PROVIDED HISTORY: injury with deformity TECHNOLOGIST PROVIDED HISTORY: injury with deformity FINDINGS: The bones are osteopenic. There are advanced degenerative changes at the1st carpometacarpal joint and degenerative changes involving multiple interphalangeal joints which are worst and severe at the 3rd distal interphalangeal joint. There is a transverse nondisplaced distal radial fracture with dorsal impaction and mild apex volar angulation withslight dorsal tilt of the articular surface of the radius. Elsewhere, nofracture or dislocation is identified. IMPRESSION: 1. Transverse nondisplaced distal radial fracture with dorsal impactionand mild apex volar angulation with slight dorsal tilt of the articularsurface of the radius. 2. Osteopenia and osteoarthritis with advanced degenerative changes atthe 1st carpometacarpal joint and degenerative changes involving multiple interphalangeal joints which are worst and severe at the 3rd distal interphalangeal joint. Authorizing ProviderResult TypeResult StatusMarcimelba Hooks FIELD AUDITOR - CNPIMG DIAGNOSTIC IMAGING ORDERABLESFinal Result * [facility] DIGITAL SCREEN SELF REFERRAL W OR WO CAD BILATERAL (01/06/2024 3:49 PM EDT)Anatomical RegionLateralityModalityBreastBilateralMammographySpecimen (Source)Anatomical Location / LateralityCollection Method / VolumeCollection TimeReceived Time01/08/2024 9:01 AM EDT Impressions 01/08/2024 9:01 AM EDT No mammographic evidence of malignancy BIRADS: BIRADS - CATEGORY 1 Negative. ??Normal interval follow-up is recommended in 12 months. OVERALL ASSESSMENT - NEGATIVE A letter of notification will be sent to the patient regarding the results. The [employer] recommends annual mammograms for women 40 years and older. Performing Facility: [place] [address] Narrative 01/08/2024 9:01 AM EDT EXAMINATION: SCREENING DIGITAL BILATERAL MAMMOGRAM WITH TOMOSYNTHESIS, 01/06/2024 TECHNIQUE: Screening mammography of the bilateral breasts was performed with tomosynthesis. ??2D standard and 3D tomosynthesis combination imaging performed through both breasts in the MLO and CC projection. ??Computer aided detection was utilized in the interpretation of this exam. COMPARISON: December 26, 2022 and June 09, 2019 HISTORY: Screening. FINDINGS: There are scattered areas of fibroglandular density. ??There is no dominant mass, architectural distortion or concerning grouping of microcalcification in either breast. Authorizing ProviderResult TypeResult StatusDoaaron Lopez MDIMG MAMMOGRAPHY ORDERABLESFinal Result * (ABNORMAL) Basic Metabolic Panel (01/07/2023 1:06 PM EDT)ComponentValueRef RangeTest MethodAnalysis TimePerformed AtPathologist IgpzxhwrpCdqkki587156 - 144 mmol/L1 1:06 PM [facility] LABPotassium3.9 3.7 - 5.3 mmol/L1 1:06 PM [facility] LABChloride 80817 - 107 mmol/L1 1:06 PM [facility] TFRTS855 20 - 31 mmol/L1 1:06 PM [facility] LABAnion Gap 109 - 17 mmol/L1 1:06 PM [facility] LABGlucose 112(H)70 - 99 mg/dL01/07/2023 1:06 PM [facility] NFJSKL82 8 - 23 mg/dL01/07/2023 1:06 PM [facility] LABCreatinine 1.0(H)0.5 - 0.9 mg/dL01/07/2023 1:06 PM [facility] LAB Est, Glom Filt Rate>60>60 mL/min/1.42k59501/07/2023 1:06 PM [facility] LABComment: ? These results are not intended for use in patients <18 years of age. ? eGFR results are calculated without a race factor using the 2020 CKD-EPI equation. Careful clinical correlation is recommended, particularly when comparing to results calculated using previous equations. The CKD-EPI equation is less accurate in patients with extremes of muscle mass, extra-renal metabolism of creatine, excessive creatine ingestion, or following therapy that affects renal tubular secretion. BUN/Creatinine Ratio22(H) - 1:06 PM [facility] LABCalcium9.08.6 - 10.4 mg/dL01/07/2023 1:06 PM [facility] LABSpecimen (Source)Anatomical Location / LateralityCollection Method / VolumeCollection TimeReceived TimeBloodBLOOD SPECIMEN / Ytusqzg5801/07/2023 1:06 PM EDT1 1:07 PM EDT Narrative Authorizing ProviderResult TypeResult StatusPhilip E Jason MDCHEMISTRY ORDERABLESFinal ResultPerforming OrganizationAddressCity/State/ZIP CodePhone Number [facility] [address] [place] [address] * Hemoglobin A1C (11/14/2022 11:23 AM EDT)ComponentValueRef RangeTest Method Analysis TimePerformed AtPathologist SignatureHemoglobin A1C5.54.0 - 6.0 % 11/14/2022 11:23 AM EDTMERCY LABORATORIESEstimated Avg Hgtfsmm883bc/dL 11/14/2022 11:23 AM EDTMERCY LABORATORIESComment: The ADA and AACC recommend providing the estimated average glucose result to permit better patient understanding of their HBA1c result. Specimen (Source)Anatomical Location / LateralityCollection Method / Volume Collection TimeReceived Time11/14/2022 11:23 AM EDT11/14/2022 11:24 AM EDT Narrative Authorizing ProviderResult TypeResult StatusKamaljit Jocelynn Stevensonsean MDCHEMISTRY ORDERABLES Final ResultPerforming OrganizationAddressCity/State/ZIP CodePhone Number [facility] [address] [place], [place] [address] [place] [address] [phone] * (ABNORMAL) Lipid Panel (11/14/2022 11:23 AM EDT)ComponentValueRef RangeTest MethodAnalysis TimePerformed AtPathologist PkjtrrqryMalrqftuoqz772<200 mg/dL 11/14/2022 11:23 AM EDTMERCY LABORATORIESComment: Cholesterol Guidelines: <200 Desirable 200-240 ??Borderline >240 Undesirable HDL40(L)>40 mg/dL11/14/2022 11:23 AM EDTMERCY LABORATORIESComment: HDL Guidelines: <40 Undesirable 40-59 ?Borderline >59 Desirable LDL Cbtebrzsary285 - 130 mg/dL11/14/2022 11:23 AM EDTMERCY LABORATORIESComment: LDL Guidelines: <100 Desirable 100-129 ?? Near to/above Desirable 130-159 ?? Borderline >159 Undesirable Direct (measured) LDL and calculated LDL are not interchangeable tests. Chol/HDL Ratio3.7<508 11:23 AM EDTMERCY LABORATORIESComment: Qsajrhuksydkb39<150 mg/dL11/14/2022 11:23 AM EDTMERCY LABORATORIESComment: Triglyceride Guidelines: <150 Desirable 150-199 ??Borderline 200-499 ??High >499 Very high Based on AHA Guidelines for fasting triglyceride, January 2012. Specimen (Source)Anatomical Location / LateralityCollection Method / Volume Collection TimeReceived Time11/14/2022 11:23 AM EDT11/14/2022 11:24 AM EDT Narrative Authorizing ProviderResult TypeResult StatusDougzeke Lopez MDCHEMISTRY ORDERABLES Final ResultPerforming OrganizationAddressCity/State/ZIP CodePhone Number [facility] [address] [place] [address], [facility] [phone] [facility] [address] [place] [address], [facility] [phone] * Occult Blood Screen (05/22/2021 4:08 PM EST)ComponentValueRef RangeTest Method Analysis TimePerformed AtPathologist SignatureOccult Blood, Stool #1NEGATIVE OCCMOXWP18/15/2022 4:08 PM [facility] LABDate, Stool #1 2,152,7426405/22/2021 4:08 PM [facility] LABTime, Stool #1 1,2525205/22/2021 4:08 PM [facility] LABOccult Blood, Stool #2NOT WCVCHJYGBFZYTQEM20/15/2022 4:08 PM [facility] Date, Stool #2NOT ZVMCYTAO50/15/2022 4:08 PM [facility] LABTime, Stool #2NOT WDYUBLIT58/15/2022 4:08 PM [facility] LABOccult Blood, Stool #3NOT WNQCIVIQBJQXWRPL29/15/2022 4:08 PM [facility] LABDate, Stool #3NOT HDKARFUJ14/15/2022 4:08 PM [facility] LABTime, Stool #3NOT DORTQUCR46/15/2022 4:08 PM [facility] LABSpecimen (Source)Anatomical Location / LateralityCollection Method / VolumeCollection TimeReceived Time05/22/2021 4:08 PM EST05/22/2021 4:09 PM EST Narrative Authorizing ProviderResult TypeResult StatusKamaljit Lopez MDBODY FLUIDS AND STOOLS ORDERABLESFinal ResultPerforming OrganizationAddressCity/State/ZIP Code Phone Number [facility] [address] [place] [address], [facility] [phone] * Colonoscopy (11/12/2019 12:53 PM EDT)Specimen (Source)Anatomical Location / LateralityCollection Method / VolumeCollection TimeReceived Time Narrative Epic, User - 11/12/2019 12:53 PM EDT No dictation Authorizing ProviderResult TypeResult StatusBettina Nazemi I, DOENDOSCOPY ORDERABLESFinal Result from Last 3 Months or Most Recently Relevant to Health Maintenance Additional Health Concerns InfectionOnset DateLast IndicatedESBL (Extended Spectrum Beta Lactamase) Insurance Advance Directives * Full Code (Latest Code Status on File) Date ActivatedDate InactivatedComments07/28/2023 11:49 AM07/28/2023 4:58 PM * Full Code Date ActivatedDate UfrojljujntAeqpuedw46/30/2023 5:23 PM10 6:15 PM * Full Code Date ActivatedDate MalkjipwxxwPldyfnlt33/25/2019 7:34 PM10 9:18 PM * Full Code Date ActivatedDate InactivatedComments12/28/2018 4:13 AM01/04/2019 7:05 PM Care Teams Team MemberRelationshipSpecialtyStart DateEnd Date Kamaljit Lopez MD [address] [place] [address] [facility] - Jbbaqav24/10/12
== END 2025-03-24 13:05 | disposition home or self-care (01) ==
LOC: WC 13:05
PROVIDERS: PCP Family Medicine; Visit Provider Physician Assistant
DX: I87.312 Chronic venous hypertension (idiopathic) with ulcer of left lower extremity (principal); L97.822 Non-pressure chronic ulcer of other part of left lower leg with fat layer exposed
CPT/HCPCS: G0463